=== PATIENT | male | born 1970 | race Caucasian/White ===

== ENCOUNTER 2018-08-08 10:20 | Emergency (ER) | payer BC ==
--- NOTE | 2018-08-08 11:09 | RAD REPORT ---
EXAM DESCRIPTION: CT - Stone Protocol - 08/08/2018 10:52 am CLINICAL HISTORY: Right-sided abdominal pain, flank pain COMPARISON: CT imaging January 2017 TECHNIQUE: Axial 5 mm thick images were obtained without oral or IV contrast. The [id number]-[id number] span s the entirety of the system partially obscuring uppermost abdomen and lung bases. All CT scans are performed using dose optimization technique as appropriate and may include automated exposure control or mA/KV adjustment according to patient size. FINDINGS: No hydronephrosis is present and no obstructing ureteral calculi. No suspicious renal mass es. Isodense masses and pyelonephritis are not excluded on a stone protocol CT scan. No urinary bladd er suspicious finding. Imaged portions of the liver, spleen and pancreas show no suspicious findings on non-contrast imaging . A 17 millimeter oval low-density mass posterolateral right lobe believed to be a cyst and is unchan ged from the study performed 18 months earlier. No gallbladder or biliary tree abnormality identified . No significant adrenal finding. No suspicious bowel findings. Minimal colonic diverticulosis present. No hernia, mass or bulky lymphadenopathy noted. No free air, free fluid or inflammatory stranding. No acute or destructive bone process. There is postsurgical change in the lumbar spine. [place] artifac t from the metal hardware is somewhat limiting. IMPRESSION: No hydronephrosis, obstructing calculus or acute finding. Isodense masses and pyelonephritis are not excluded on stone protocol technique. As detailed above, no acute or suspicious findings identifiable.
[2018-08-08 11:16] LABS: Urine Bacteria <20 /HPF (NONE SEEN); Urine Culture Reflex Order NOT NEEDED; Urine RBC <5 /HPF (NONE SEEN)
[2018-08-08 11:22] LABS: Urine Blood NEGATIVE (NEG); Urine Glucose NEGATIVE (NEG); Urine Protein NEGATIVE (NEG)
[2018-08-08 11:25] LABS: Absolute Lymphocytes (CBC) 1.6 K/uL (0.7-4.9); Absolute Monocytes 0.6 K/uL (0.1-1.3); Absolute Neutrophil 3.3 K/uL (1.8-8.0); Basophils % 0.4 % (0-1.3); Eosinophils % 1.1 % (0-4.4); Lymphocytes % 28.7 % (15.3-44.8); MCH 31.3 pg (27.0-35.0); MCV 89.3 fL (80-100); MPV 8.5 fL (7.6-11.3); Monocytes % 10.6 % (3.3-12.3); RBC Red Blood Cell Count 4.59 M/uL (4.33-5.43)
[2018-08-08 11:47] LABS: ALT/SGPT 26 U/L (12-78); AST/SGOT 15 U/L (15-37); Albumin 3.8 g/dL (3.4-5.0); Alkaline Phosphatase 61 U/L (45-117); BUN Blood Urea Nitrogen 16 mg/dL (7-18); Bicarbonate 28 mmol/L (21-32); Bilirubin Direct < 0.1 mg/dL (0-0.2); Bilirubin Total 0.3 mg/dL (0.2-1.0); Glucose Level 98 mg/dL (74-106); Lipase 609 U/L (73-393); Potassium 4.1 mmol/L (3.5-5.1); Protein, Total 6.9 g/dL (6.4-8.2); Sodium Level 143 mmol/L (136-145)
--- NOTE | 2018-08-08 12:37 | EDPHYS ---
Physician Documentation [facility] Name: Pola Ceron Jr Age: 47 yrs Sex: Male : 1970 Arrival Date: 08/08/2018 Time: 10:23 Bed 6 Private MD: Kd Upton T ED Physician Edy Chaudhary HPI: 08/08 11:00 This 47 yrs old Male presents to ER via Ambulatory with complaints of Low pm1 Back Pain, Sore Throat. 11:00 The patient presents with pain that is acute. The symptoms are located in the right low pm1 back. The pain radiates to the right lower quadrant. The problem was sustained from unknown cause. Onset: The symptoms/episode began/occurred 2 day(s) ago. Modifying factors: The patient symptoms are alleviated by nothing, the patient symptoms are aggravated by bending, lifting, movement. Associated signs and symptoms: Pertinent positives: sore throat, Pertinent negatives: chest pain, dysuria, fever, headache, hematuria, shortness of breath. The patient has not experienced similar symptoms in the past. The patient has not recently seen a physician. Historical: - Allergies: 10:30 NKA; iw - Home Meds: 10:38 Tylenol #3 Oral [Active]; iw - PMHx: 10:38 None; iw - PSHx: 10:30 back; iw - Immunization history:: Adult Immunizations up to date. - Social history:: Smoking status: Patient/guardian denies using tobacco. - Ebola Screening: : Patient negative for fever greater than or equal to 101.5 degrees Fahrenheit, and additional compatible Ebola Virus Disease symptoms Patient denies exposure to infectious person Patient denies travel to an Ebola-affected area in the 21 days before illness onset No symptoms or risks identified at this time. ROS: 11:00 Constitutional: Negative for fever, chills, and weight loss, Eyes: Negative for injury, pm1 pain, redness, and discharge. 11:00 Neck: Negative for injury, pain, and swelling, Cardiovascular: Negative for chest pain, palpitations, and edema, Respiratory: Negative for shortness of breath, cough, wheezing, and pleuritic chest pain, Abdomen/GI: Negative for abdominal pain, nausea, vomiting, diarrhea, and constipation. 11:00 : Negative for injury, bleeding, discharge, and swelling, MS/Extremity: Negative for injury and deformity, Skin: Negative for injury, rash, and discoloration, Neuro: Negative for headache, weakness, numbness, tingling, and seizure. 11:00 ENT: Positive for sore throat, Negative for ear pain, rhinorrhea, difficulty swallowing, difficulty handling secretions. 11:00 Back: Positive for flank pain, on the right. Exam: 11:00 Constitutional: This is a well developed, well nourished patient who is awake, alert, pm1 and in no acute distress. Head/Face: Normocephalic, atraumatic. Eyes: Pupils equal round and reactive to light, extra-ocular motions intact. Lids and lashes normal. Conjunctiva and sclera are non-icteric and not injected. Cornea within normal limits. Periorbital areas with no swelling, redness, or edema. ENT: Nares patent. No nasal discharge, no septal abnormalities noted. Tympanic membranes are normal and external auditory canals are clear. Oropharynx with no redness, swelling, or masses, exudates, or evidence of obstruction, uvula midline. Mucous membranes moist. Neck: Trachea midline, no thyromegaly or masses palpated, and no cervical lymphadenopathy. Supple, full range of motion without nuchal rigidity, or vertebral point tenderness. No Meningismus. Chest/axilla: Normal chest wall appearance and motion. Nontender with no deformity. No lesions are appreciated. Cardiovascular: Regular rate and rhythm with a normal S1 and S2. No gallops, murmurs, or rubs. Normal PMI, no JVD. No pulse deficits. Respiratory: Lungs have equal breath sounds bilaterally, clear to auscultation and percussion. No rales, rhonchi or wheezes noted. No increased work of breathing, no retractions or nasal flaring. Abdomen/GI: Soft, non-tender, with normal bowel sounds. No distension or tympany. No guarding or rebound. No evidence of tenderness throughout. 11:00 Skin: Warm, dry with normal turgor. Normal color with no rashes, no lesions, and no evidence of cellulitis. MS/ Extremity: Pulses equal, no cyanosis. Neurovascular intact. Full, normal range of motion. 11:00 Back: normal spinal alignment noted, CVA tenderness, that is mild, is noted on the right. 11:00 Neuro: Orientation: is normal, Motor: moves all fours, Sensation: is normal, no obvious gross deficits, Gait: is steady, at a normal pace, without difficulty. Vital Signs: 10:33 BP 133 / 70; Pulse 65; Resp 16; Temp 97.9; Pulse Ox 99% on R/A; iw 11:33 BP 119 / 58; Pulse 60; Resp 17; Pulse Ox 98% on R/A; dh3 MDM: 10:28 Patient medically screened. pm1 11:49 Data reviewed: vital signs. Data interpreted: Pulse oximetry: on room air is 99 %. pm1 Interpretation: normal. 12:36 Counseling: I had a detailed discussion with the patient and/or guardian regarding: the pm1 historical points, exam findings, and any diagnostic results supporting the discharge/admit diagnosis, lab results, radiology results, the need for outpatient follow up, to return to the emergency department if symptoms worsen or persist or if there are any questions or concerns that arise at home. 12:36 ED course: Patient has Tylenol #3 at home. Has taken for his current pain prior to pm1 arrival. 08/08 10:36 Order name: Strep pm1 08/08 10:36 Order name: Basic Metabolic Panel; Complete Time: 11:49 pm08/08 10:36 Order name: CBC with Diff; Complete Time: 11:44 pm1 08/08 10:36 Order name: Hepatic Function; Complete Time: 11:49 pm1 08/08 10:36 Order name: Lipase; Complete Time: 11:49 pm1 08/08 10:36 Order name: Urine Microscopic Only; Complete Time: 11:44 pm08/08 10:36 Order name: IV Saline Lock; Complete Time: 10:45 pm08/08 10:36 Order name: Labs collected and sent; Complete Time: 10:45 pm1 08/08 10:36 Order name: Urine Dipstick-Ancillary (obtain specimen); Complete Time: 10:41 pm1 08/08 10:36 Order name: CT Stone Protocol; Complete Time: 11:13 pm1 08/08 10:36 Order name: Group A Streptococcus Rapid Sc; Complete Time: 11:44 EDMS 08/08 10:55 Order name: Urine Dipstick--Ancillary (enter results); Complete Time: 11:44 bd 08/08 11:40 Order name: Throat Culture EDMS Administered Medications: No medications were administered Disposition: 13:28 Co-signature as Attending Physician, Edy Chaudhary MD. rn Disposition: 08/08/18 12:36 Discharged to Home. Impression: Low back pain, Strain of muscle, fascia and tendon of lower back. - Condition is Stable. - Discharge Instructions: Back Pain, Adult, Muscle Strain, Musculoskeletal Pain, Back Injury Prevention, [id number]. - Prescriptions for Naprosyn 500 mg Oral Tablet - take 1 tablet by ORAL route 2 times per day take with food; 30 tablet. Cyclobenzaprine 10 mg Oral Tablet - take 1 tablet by ORAL route every 8 hours As needed; 30 tablet. - Work release form, Medication Reconciliation Form, Thank You Letter, Prescription Opioid Use form. - Follow up: Emergency Department; When: As needed; Reason: Worsening of condition. Follow up: Kd Upton MD; When: 2 - 3 days; Reason: Recheck today's complaints, Continuance of care, Re-evaluation by your physician. - Problem is new. - Symptoms have improved. Signatures: Dispatcher [employer] EDMS Zee Benitez RN RN sv Williams, Irene, RN RN iw Nieto, Roman, MD MD rn Marinas, Patrick, SHIVA SKEET OPERATOR pm1 Corrections: (The following items were deleted from the chart) 12:36 12:36 08/08/2018 12:36 Discharged to Home. Impression: Low back pain. Condition is pm1 Stable. Forms are Medication Reconciliation Form, Thank You Letter, Antibiotic Education, Prescription Opioid Use. Follow up: Emergency Department; When: As needed; Reason: Worsening of condition. Follow up: Kd Upton; When: 2 - 3 days; Reason: Recheck today's complaints, Continuance of care, Re-evaluation by your physician. Problem is new. Symptoms have improved. pm1 13:06 12:36 08/08/2018 12:36 Discharged to Home. Impression: Low back pain; Strain of muscle, sv fascia and tendon of lower back. Condition is Stable. Forms are Medication Reconciliation Form, Thank You Letter, Antibiotic Education, Prescription Opioid Use. Follow up: Emergency Department; When: As needed; Reason: Worsening of condition. Follow up: Kd Upton; When: 2 - 3 days; Reason: Recheck today's complaints, Continuance of care, Re-evaluation by your physician. Problem is new. Symptoms have improved. pm1
--- NOTE | 2018-08-08 12:37 | ER ---
Nurse's Notes [facility] Name: Pola Ceron Jr Age: 47 yrs Sex: Male : 1970 Arrival Date: 08/08/2018 Time: 10:23 Bed 6 Private MD: Kd Upton T Diagnosis: Low back pain;Strain of muscle, fascia and tendon of lower back Presentation: 08/08 10:30 Presenting complaint: Patient states: has had right lower back pain radiating to iw abdomen since Wednesday, thought he pulled a muscle but pain has gotten worse, pain aggravated by movement, denies urinary symptoms, denies n/v/d, also has dry throat and allergies. 10:35 Transition of care: patient was not received from another setting of care. Onset of iw symptoms was August 05, 2018. Risk Assessment: Do you want to hurt yourself or someone else? Patient reports no desire to harm self or others. Initial Sepsis Screen: Does the patient meet any 2 criteria? No. Patient's initial sepsis screen is negative. Does the patient have a suspected source of infection? No. Patient's initial sepsis screen is negative. Care prior to arrival: None. 10:35 Method Of Arrival: Ambulatory iw 10:35 Acuity: LISSETTE 3 iw Historical: - Allergies: 10:30 NKA; iw - Home Meds: 10:38 Tylenol #3 Oral [Active]; iw - PMHx: 10:38 None; iw - PSHx: 10:30 back; iw - Immunization history:: Adult Immunizations up to date. - Social history:: Smoking status: Patient/guardian denies using tobacco. - Ebola Screening: : Patient negative for fever greater than or equal to 101.5 degrees Fahrenheit, and additional compatible Ebola Virus Disease symptoms Patient denies exposure to infectious person Patient denies travel to an Ebola-affected area in the 21 days before illness onset No symptoms or risks identified at this time. Screenin:32 Abuse screen: Denies threats or abuse. Denies injuries from another. Nutritional sv screening: No deficits noted. Tuberculosis screening: No symptoms or risk factors identified. Fall Risk None identified. Assessment: 10:40 General: Appears in no apparent distress. comfortable, well groomed, well developed, sv Behavior is calm, cooperative, appropriate for age. Pain: Complains of pain in low back area and throat Pain currently is 5 out of 10 on a pain scale. Is continuous. Neuro: Level of Consciousness is awake, alert, obeys commands, Oriented to person, place, time, situation, Moves all extremities. Full function Gait is steady. Respiratory: Airway is patent Respiratory effort is even, unlabored, Respiratory pattern is regular, symmetrical. EENT: Throat is clear. Derm: Skin is pink, warm \T\ dry. 12:20 Reassessment: Patient appears in no apparent distress at this time. Patient and/or tw2 family updated on plan of care and expected duration. Pain level reassessed. Patient is alert, oriented x 3, equal unlabored respirations, skin warm/dry/pink. 13:05 Reassessment: Patient appears in no apparent distress at this time. Patient and/or sv family updated on plan of care and expected duration. Pain level reassessed. Patient is alert, oriented x 3, equal unlabored respirations, skin warm/dry/pink. Vital Signs: 10:33 BP 133 / 70; Pulse 65; Resp 16; Temp 97.9; Pulse Ox 99% on R/A; iw 11:33 BP 119 / 58; Pulse 60; Resp 17; Pulse Ox 98% on R/A; dh3 ED Course: 10:23 Patient arrived in ED. rg4 10:23 Kd Upton MD is Private Physician. rg4 10:27 Tommy Morales NP is PHCP. pm1 10:27 Edy Chaudhary MD is Attending Physician. pm1 10:32 Zee Benitez, RAYMOND is Primary Nurse. sv 10:32 Patient has correct armband on for positive identification. Door closed. Head of bed sv elevated. 10:33 Arm band placed on right wrist. sv 10:35 Triage completed. iw 10:40 Initial lab(s) drawn, by me, sent to lab. Strep swab sent to lab. Inserted saline lock: sv 20 gauge in right antecubital area, using aseptic technique. Blood collected. Flushed right antecubital with 5 ml normal saline. 10:41 Urine collected: clean catch specimen, clear. dh3 10:45 Strep Sent. sv 10:[address] via wheelchair. sv 10:49 CT completed. Patient tolerated procedure well. Patient moved back from CT. jg6 10:52 CT Stone Protocol In Process Unspecified. EDMS 11:01 Awaiting lab results, Awaiting radiology results. sv 12:36 Kd Upton MD is Referral Physician. pm1 13:05 No provider procedures requiring assistance completed. IV discontinued, intact, sv bleeding controlled, No redness/swelling at site. Pressure dressing applied. Administered Medications: No medications were administered Outcome: 12:36 Discharge ordered by MD. pm1 13:05 Discharged to home ambulatory. sv 13:05 Condition: stable 13:05 Discharge instructions given to patient, Instructed on discharge instructions, follow up and referral plans. medication usage, Demonstrated understanding of instructions, follow-up care, medications, Prescriptions given X 2. 13:06 Patient left the ED. sv Signatures: Dispatcher [employer] EDKY Zee Benitez RN RN Betsey Pina RN RN iw Tommy Morales, SHIVA INDUSTRIAL TWISTING MACHINE OPERATOR pm1 Tash Martinez RN RN tw2 Mellissa Lopez rg4 William, Gricelda 3 Caroline Lopez jg6 Corrections: (The following items were deleted from the chart) 12:21 12:19 BP 109 / 64; Pulse 94bpm; Resp 18bpm; Pulse Ox 96% RA; tw2 tw2
[2018-08-08 13:11] VITALS: TEMP 97.9
[2018-08-08 13:12] VITALS: BP 119/58; O2SAT 98
== END 2018-08-08 13:06 | disposition home or self-care (01) ==
LOC: ER 10:20
DX: S39.012A Strain of muscle, fascia and tendon of lower back, initial encounter (principal); X58.XXXA Exposure to other specified factors, initial encounter; Y93.9 Activity, unspecified; Y92.9 Unspecified place or not applicable
CPT/HCPCS: 36415; 74176; 76377; 80048; 80076; 81003; 81015; 83690; 85025; 87070; 87081; 99284

== ENCOUNTER 2019-08-10 16:09 | Emergency (ER) | payer BC ==
[2019-08-10] MEDS ORDERED: ACETAMINOPHEN 325 MG TABLET ONE (17:27)
[2019-08-10] MEDS ORDERED: IBUPROFEN 400 MG TAB ONE (17:28)
--- NOTE | 2019-08-10 18:37 | RAD REPORT ---
EXAM DESCRIPTION: RAD -Hand Left 3 View - 08/10/2019 6:06 pm CLINICAL HISTORY: Left hand pain status post injury FINDINGS: No fracture or dislocation is seen.
--- NOTE | 2019-08-10 18:48 | ER ---
Nurse's Notes [facility] Name: Pola Ceron Jr Age: 48 yrs Sex: Male : 1970 Arrival Date: 08/10/2019 Time: 16:20 Bed 11 Private MD: Diagnosis: Laceration without foreign body of left hand Presentation: 08/10 16:28 Presenting complaint: Patient states: cut left hand with screwdriver, states it's deep, iw occurred two days ago. Transition of care: patient was not received from another setting of care. Complicating Factors: There are no complicating factors for this patient. Onset of symptoms was August 10, 2019. Risk Assessment: Do you want to hurt yourself or someone else? Patient reports no desire to harm self or others. Initial Sepsis Screen: Does the patient meet any 2 criteria? No. Patient's initial sepsis screen is negative. Does the patient have a suspected source of infection? No. Patient's initial sepsis screen is negative. Care prior to arrival: None. 16:28 Method Of Arrival: Ambulatory iw 16:28 Acuity: LISSETTE 4 iw Triage Assessment: 17:15 General: Behavior is calm, cooperative. Injury Description: Laceration. iw Historical: - Allergies: 16:30 NKA; iw - PMHx: 16:30 hearing impaired; iw - PSHx: 16:30 back; iw - Immunization history:: Last tetanus immunization: < 5 years ago. - Ebola Screening: : Patient negative for fever greater than or equal to 101.5 degrees Fahrenheit, and additional compatible Ebola Virus Disease symptoms Patient denies exposure to infectious person Patient denies travel to an Ebola-affected area in the 21 days before illness onset No symptoms or risks identified at this time. - Social history:: Smoking status: Patient/guardian denies using tobacco. Screenin:22 Abuse screen: Denies threats or abuse. Denies injuries from another. Nutritional iw screening: No deficits noted. Tuberculosis screening: No symptoms or risk factors identified. Fall Risk None identified. Assessment: 17:22 General: Appears in no apparent distress. comfortable. Pain: Complains of pain in right iw hand. Neuro: Level of Consciousness is awake, alert, obeys commands, Oriented to person, place, time, situation. Respiratory: Respiratory effort is even, unlabored, Respiratory pattern is regular. Musculoskeletal: No signs and/or symptoms reported regarding the musculoskeletal system. Range of motion: intact in all extremities, Injury Description: Laceration sustained to dorsum of right hand is 0.5 to 2.5 cm long. Vital Signs: 16:29 BP 140 / 82; Pulse 75; Resp 16; Temp 98.7; Pulse Ox 97% ; iw ED Course: 16:20 Patient arrived in ED. iw 16:29 Triage completed. iw 16:29 Arm band placed on. iw 16:30 Patient has correct armband on for positive identification. iw 17:17 Ren Conner PA is PHCP. cp 17:17 Trey Carrasquillo MD is Attending Physician. cp 17:21 Betsey Pina, RAYMOND is Primary Nurse. iw 18:09 XRAY Hand LEFT 3 View In Process Unspecified. EDMS 18:46 Richard Greenberg MD is Referral Physician. cp 19:04 No provider procedures requiring assistance completed. Patient did not have IV access ss during this emergency room visit. finger splint applied with aluminum splint. Wound care: irrigated wound with NS and Betadine solution. patient tolerated well. Non adherent dressing with antibiotic ointment applied. Administered Medications: 17:29 Drug: Ibuprofen 800 mg Route: PO; iw 18:57 Follow up: Response: No adverse reaction ss 17:29 Drug: Tylenol 650 mg Route: PO; iw 18:57 Follow up: Response: No adverse reaction ss 18:57 Drug: Bactrim (160 mg-800 mg (DS) 1 tablet Route: PO; ss 18:58 Follow up: Response: Medication administered at discharge. ss 18:58 Drug: Doxycycline 100 mg Route: PO; ss 18:58 Follow up: Response: Medication administered at discharge. ss 19:03 Not Given (patient had tetnus shot 4 years ago): Tetanus-Diphtheria Toxoid Adult 0.5 ml ss IM once Outcome: 18:47 Discharge ordered by . cp 19:04 Discharged to home ambulatory. ss 19:04 Condition: good 19:04 Discharge instructions given to patient, Instructed on discharge instructions, follow up and referral plans. medication usage, wound care, Demonstrated understanding of instructions, follow-up care, medications, Prescriptions given X 4. 19:05 Patient left the ED. ss Signatures: Dispatcher [employer] EDMS YovaniBetsey RN RN iw Smirch, Shelby, RN RN ss Ren Conner, JOHN PA cp Corrections: (The following items were deleted from the chart) 16:29 16:28 Presenting complaint: Patient states: cut left hand with screwdriver, states it's iw deep iw
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
[2019-08-10] MEDS ORDERED: DOXYCYCLINE 100 MG CAP PO ONE (18:54)
[2019-08-10] MEDS ORDERED: SMZ./TMP. 800/160 MG TABLET ONE (18:54)
[2019-08-10 20:38] VITALS: BP 140/82; TEMP 98.7; O2SAT 97
== END 2019-08-10 19:05 | disposition home or self-care (01) ==
LOC: ER 16:09
DX: S61.412A Laceration without foreign body of left hand, initial encounter (principal); W27.0XXA Contact with workbench tool, initial encounter; Y93.89 Activity, other specified; Y92.9 Unspecified place or not applicable; Z23 Encounter for immunization
CPT/HCPCS: 99284

== ENCOUNTER 2020-02-21 06:01 | Emergency (ER) | payer BC ==
[2020-02-21] MEDS ORDERED: KETOROLAC 30 MG/ML INJ ONE (06:33)
[2020-02-21 07:48] LABS: Urine Bacteria NONE SEEN /HPF (NONE SEEN); Urine Culture Reflex Order REFLEXED; Urine RBC NONE SEEN /HPF (NONE SEEN)
--- NOTE | 2020-02-21 07:56 | RAD REPORT ---
EXAM DESCRIPTION: CT - Stone Protocol - 02/21/2020 7:29 am CLINICAL HISTORY: Abdominal pain. Right flank pain COMPARISON: 2017 TECHNIQUE: Computed axial tomography of the abdomen pelvis was obtained without oral or IV contrast. Lack of IV and oral contrast limits evaluation of solid organs, bowel, and vessels. Coronal reformat harris images were obtained and reviewed. All CT scans are performed using dose optimization technique as appropriate and may include automated exposure control or mA/KV adjustment according to patient size. FINDINGS: A renal calculus is not seen. An ureteral calculus is not noted. A bladder calculus is not present. A small hepatic cyst Spleen, pancreas and adrenals appear grossly normal There is no evidence of diverticulitis. An abnormal appendix is not visualized. Postsurgical changes involve the lumbar spine. A small umbilical hernia is present IMPRESSION: Negative for a genitourinary calculus
--- NOTE | 2020-02-21 07:59 | ER ---
Nurse's Notes [facility] Name: Pola Ceron Jr Age: 49 yrs Sex: Male : 1970 Arrival Date: 02/21/2020 Time: 06:11 Bed 19 Private MD: Diagnosis: Low back pain Presentation: 02/20 06:20 Chief complaint: Patient states: he is having right flank pain starting 2 days ago and bb getting worse pain currently is 10/. Coronavirus screen: Patient denies fever greater than 100.4F, cough, shortness of breath, or difficulty breathing. Proceed with normal triage process. Ebola Screen: No symptoms or risks identified at this time. Initial Sepsis Screen: Does the patient meet any 2 criteria? No. Patient's initial sepsis screen is negative. Does the patient have a suspected source of infection? No. Patient's initial sepsis screen is negative. Risk Assessment: Do you want to hurt yourself or someone else? Patient reports no desire to harm self or others. Onset of symptoms was February 18, 2020. 06:20 Method Of Arrival: Ambulatory bb 06:20 Acuity: LISSETTE 3 bb Triage Assessment: 07:00 General: Appears in no apparent distress. comfortable, Behavior is calm, cooperative, bp appropriate for age. Pain: Complains of pain in posterior aspect of right lateral abdomen. EENT: No deficits noted. Neuro: No deficits noted. Cardiovascular: No deficits noted. Respiratory: No deficits noted. GI: No signs and/or symptoms were reported involving the gastrointestinal system. : Reports pain in right flank(s). Derm: No deficits noted. Musculoskeletal: No deficits noted. Historical: - Allergies: 06:22 NKA; bb - Home Meds: 06:22 None [Active]; bb - PMHx: 06:22 HEARING IMPAIRED; Kidney stones; bb - PSHx: 06:22 back; bb - Immunization history:: Adult Immunizations unknown. - Social history:: Smoking status: Patient denies any tobacco usage or history of. Patient/guardian denies using alcohol, street drugs. Screenin:22 Abuse screen: Denies threats or abuse. Denies injuries from another. Nutritional rv screening: No deficits noted. Tuberculosis screening: No symptoms or risk factors identified. Fall Risk None identified. Assessment: 06:22 General: Appears in no apparent distress. Behavior is calm, cooperative. Pain: rv Complains of pain in right flank. Neuro: Level of Consciousness is awake, alert, obeys commands, Oriented to person, place, time, situation. Cardiovascular: Patient's skin is warm and dry. Respiratory: Airway is patent. GI: Abdomen is flat, Bowel sounds present X 4 quads. : No signs and/or symptoms were reported regarding the genitourinary system. Derm: Skin is intact. 08:25 Reassessment: PT D/C HOME AMBULATORY, DX WITH LOW BACK PAIN. bp Vital Signs: 06:20 BP 121 / 57; Pulse 63; Resp 16 S; Temp 98(O); Pulse Ox 98% on R/A; Weight 122.47 kg bb (R); Height 6 ft. 0 in. (182.88 cm) (R); Pain 10/10; 08:25 BP 133 / 79; Pulse 63; Resp 17; Temp 98; Pulse Ox 97% ; bp 06:20 Body Mass Index 36.62 (122.47 kg, 182.88 cm) bb ED Course: 06:11 Patient arrived in ED. ds1 06:17 [facility]-C [facility]. snw 06:17 Ren Mcleod MD is Attending Physician. snw 06:22 Triage completed. bb 06:22 Skip Beatty, RAYMOND is Primary Nurse. rv 06:22 Arm band placed on Patient placed in an exam room, on a stretcher, on pulse oximetry. bb 06:24 Patient has correct armband on for positive identification. Bed in low position. Call rv light in reach. Pulse ox on. NIBP on. 06:33 Urine Microscopic Only Sent. rv 07:49 CT Stone Protocol In Process Unspecified. EDMS 08:25 No provider procedures requiring assistance completed. Patient did not have IV access bp during this emergency room visit. Administered Medications: 06:33 Drug: TORadol 30 mg Route: IM; Site: right deltoid; rv 08:27 Follow up: Response: Pain is decreased bp Outcome: 07:59 Discharge ordered by . snw 08:25 Discharged to home ambulatory. bp 08:25 Condition: stable 08:25 Discharge instructions given to patient, Instructed on discharge instructions, follow up and referral plans. medication usage, Demonstrated understanding of instructions, follow-up care, medications, Prescriptions given X 2. 08:31 Patient left the ED. bp Signatures: Dispatcher [employer] EDMS Trinity Hoskins, LEATHER STRIPPING MACHINE OPERATOR-C LEATHER STRIPPING MACHINE OPERATOR-Csnw Dayanara Awan ds1 Glenna Lozano, RN RN bb Saturnino Barrientos, RN RN bp Skip Beatty RN RN rv
--- NOTE | 2020-02-21 08:00 | EDPHYS ---
Physician Documentation [facility] Name: Pola Ceron Jr Age: 49 yrs Sex: Male : 1970 Arrival Date: 02/21/2020 Time: 06:11 Bed 19 Private MD: ED Physician Ren Mcleod HPI: 02/20 07:26 This 49 yrs old Male presents to ER via Ambulatory with complaints of R side snw abd pain. 07:26 Onset: The symptoms/episode began/occurred acutely, and became persistent. Associated snw signs and symptoms: The patient has no apparent associated signs or symptoms. Modifying factors: The patient symptoms are alleviated by nothing. The patient has experienced a previous episode. The patient has not recently seen a physician. hx of kidney stones. Historical: - Allergies: 06:22 NKA; bb - Home Meds: 06:22 None [Active]; bb - PMHx: 06:22 HEARING IMPAIRED; Kidney stones; bb - PSHx: 06:22 back; bb - Immunization history:: Adult Immunizations unknown. - Social history:: Smoking status: Patient denies any tobacco usage or history of. Patient/guardian denies using alcohol, street drugs. ROS: 07:25 Constitutional: Negative for fever, chills, and weight loss, Eyes: Negative for injury, snw pain, redness, and discharge, ENT: Negative for injury, pain, and discharge, Neck: Negative for injury, pain, and swelling, Cardiovascular: Negative for chest pain, palpitations, and edema, Respiratory: Negative for shortness of breath, cough, wheezing, and pleuritic chest pain, : Negative for injury, bleeding, discharge, and swelling, MS/Extremity: Negative for injury and deformity, Skin: Negative for injury, rash, and discoloration, Neuro: Negative for headache, weakness, numbness, tingling, and seizure. 07:25 Abdomen/GI: Positive for abdominal pain, of the posterior aspect of right lateral abdomen and right lower quadrant. Exam: 07:25 Constitutional: This is a well developed, well nourished patient who is awake, alert, snw and in no acute distress. Head/Face: Normocephalic, atraumatic. Eyes: Pupils equal round and reactive to light, extra-ocular motions intact. Lids and lashes normal. Conjunctiva and sclera are non-icteric and not injected. Cornea within normal limits. Periorbital areas with no swelling, redness, or edema. ENT: Nares patent. No nasal discharge, no septal abnormalities noted. Tympanic membranes are normal and external auditory canals are clear. Oropharynx with no redness, swelling, or masses, exudates, or evidence of obstruction, uvula midline. Mucous membranes moist. Neck: Trachea midline, no thyromegaly or masses palpated, and no cervical lymphadenopathy. Supple, full range of motion without nuchal rigidity, or vertebral point tenderness. No Meningismus. Chest/axilla: Normal chest wall appearance and motion. Nontender with no deformity. No lesions are appreciated. Cardiovascular: Regular rate and rhythm with a normal S1 and S2. No gallops, murmurs, or rubs. Normal PMI, no JVD. No pulse deficits. Respiratory: Lungs have equal breath sounds bilaterally, clear to auscultation and percussion. No rales, rhonchi or wheezes noted. No increased work of breathing, no retractions or nasal flaring. Abdomen/GI: Soft, non-tender, with normal bowel sounds. No distension or tympany. No guarding or rebound. No evidence of tenderness throughout. Back: No spinal tenderness. No costovertebral tenderness. Full range of motion. right flank tenderness Skin: Warm, dry with normal turgor. Normal color with no rashes, no lesions, and no evidence of cellulitis. MS/ Extremity: Pulses equal, no cyanosis. Neurovascular intact. Full, normal range of motion. Neuro: Awake and alert, GCS 15, oriented to person, place, time, and situation. Cranial nerves II-XII grossly intact. Motor strength 5/5 in all extremities. Sensory grossly intact. Cerebellar exam normal. Normal gait. Psych: Awake, alert, with orientation to person, place and time. Behavior, mood, and affect are within normal limits. Vital Signs: 06:20 BP 121 / 57; Pulse 63; Resp 16 S; Temp 98(O); Pulse Ox 98% on R/A; Weight 122.47 kg bb (R); Height 6 ft. 0 in. (182.88 cm) (R); Pain 10/10; 08:25 BP 133 / 79; Pulse 63; Resp 17; Temp 98; Pulse Ox 97% ; bp 06:20 Body Mass Index 36.62 (122.47 kg, 182.88 cm) bb MDM: 06:18 Patient medically screened. farida 15:14 Data reviewed: vital signs, nurses notes. Data interpreted: Pulse oximetry: on room air snw is 97 %. Interpretation: normal. Counseling: I had a detailed discussion with the patient and/or guardian regarding: the historical points, exam findings, and any diagnostic results supporting the discharge/admit diagnosis, the presence of at least one elevated blood pressure reading (>120/80) during this emergency department visit, radiology results, the need for outpatient follow up, to return to the emergency department if symptoms worsen or persist or if there are any questions or concerns that arise at home. Special discussion: Based on the history and exam findings, there is no indication for further emergent testing or inpatient evaluation. I discussed with the patient/guardian the need to see the primary care provider for further evaluation of the symptoms. 02/20 06:26 Order name: Urine Microscopic Only; Complete Time: 07:57 snw 02/20 07:42 Order name: Urine Dipstick--Ancillary (enter results); Complete Time: 15:15 bd 02/20 06:26 Order name: CT Stone Protocol; Complete Time: 15:15 snw 02/20 06:26 Order name: Urine Dipstick-Ancillary (obtain specimen); Complete Time: 06:33 snw 02/20 08:15 Order name: Urine Culture EDMS Administered Medications: 06:33 Drug: TORadol 30 mg Route: IM; Site: right deltoid; rv 08:27 Follow up: Response: Pain is decreased bp Disposition: 02/21/20 07:59 Discharged to Home. Impression: Low back pain. - Condition is Stable. - Discharge Instructions: Back Pain, Adult, Musculoskeletal Pain, Back Injury Prevention, [id number], Heat Therapy. - Prescriptions for Diclofenac Sodium 75 mg Oral Tablet Sustained Release - take 1 tablet by ORAL route 2 times per day; 30 tablet. orphenadrine citrate 100 mg Oral Tablet Sustained Release - take 1 tablet by ORAL route 2 times per day As needed; 20 tablet. - Work release form, Medication Reconciliation Form, Thank You Letter, Antibiotic Education, Prescription Opioid Use form. - Follow up: Emergency Department; When: As needed; Reason: Worsening of condition. Follow up: Private Physician; When: 2 - 3 days; Reason: Recheck today's complaints, Continuance of care, Re-evaluation by your physician. Addendum: 02/23/2020 06:52 Co-signature as Attending Physician, Ren Mcleod MD I agree with the assessment and c landry plan of care. Signatures: Dispatcher [employer] EDRen Miranda MD MD cha Therrien, Shelly, LIFE SKILLS TRAINER-C LIFE SKILLS TRAINER-Csnw Glenna Lozano, RN RN bb Saturnino Barrientos RN RN Skip Palm RN RN rv Corrections: (The following items were deleted from the chart) 02/20 08:31 07:59 02/21/2020 07:59 Discharged to Home. Impression: Low back pain. Condition is bp Stable. Forms are Medication Reconciliation Form, Thank You Letter, Antibiotic Education, Prescription Opioid Use. Follow up: Emergency Department; When: As needed; Reason: Worsening of condition. Follow up: Private Physician; When: 2 - 3 days; Reason: Recheck today's complaints, Continuance of care, Re-evaluation by your physician. snw
[2020-02-21 08:51] VITALS: TEMP 98
[2020-02-21 08:53] VITALS: BP 133/79; O2SAT 97
[2020-02-21 14:20] LABS: Urine Blood NEGATIVE (NEG); Urine Glucose NEGATIVE (NEG); Urine Protein NEGATIVE (NEG); Urine pH 5.5 (5.0-7.0)
== END 2020-02-21 08:31 | disposition home or self-care (01) ==
LOC: ER 06:01
DX: M54.5 Low back pain (principal); Z87.442 Personal history of urinary calculi
CPT/HCPCS: 74176; 76377; 81003; 81015; 87086; 87088; 96372; 99284

== ENCOUNTER 2020-08-01 07:40 | Emergency (ER) | payer BC ==
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
--- NOTE | 2020-08-01 08:52 | EDPHYS ---
Physician Documentation [facility] Name: Pola Ceron Jr Age: 49 yrs Sex: Male : 1970 Arrival Date: 08/01/2020 Time: 07:43 Bed 20 Private MD: ED Physician Ren Mcleod HPI: 08/01 08:19 This 49 yrs old Male presents to ER via Ambulatory with complaints of jr8 Dizziness, neck pain. 08:19 The patient presents with feeling off balance. Onset: The symptoms/episode jr8 began/occurred gradually, 2 week(s) ago. Modifying factors: The symptoms are alleviated by holding head still, the symptoms are aggravated by movement of head, standing up, changing position. Associated signs and symptoms: Pertinent positives: ear pain. Severity of symptoms: At their worst the symptoms were mild in the emergency department the symptoms are unchanged. Patient's baseline: Neuro: alert and fully oriented, Motor: no deficits, Ambulation: walks without assistance, Speech: normal. The patient has not experienced similar symptoms in the past. The patient has not recently seen a physician. Historical: - Allergies: 07:51 NKA; hb - PMHx: 07:51 HEARING IMPAIRED; Kidney stones; hb - PSHx: 07:51 back; hb - Immunization history:: Adult Immunizations up to date. - Social history:: Smoking status: Patient denies any tobacco usage or history of. ROS: 08:19 Eyes: Negative for injury, pain, redness, and discharge, Cardiovascular: Negative for jr8 chest pain, palpitations, and edema, Respiratory: Negative for shortness of breath, cough, wheezing, and pleuritic chest pain, Abdomen/GI: Negative for abdominal pain, nausea, vomiting, diarrhea, and constipation, Back: Negative for injury and pain, MS/Extremity: Negative for injury and deformity, Skin: Negative for injury, rash, and discoloration. 08:19 ENT: Positive for ear pain, Negative for drainage from ear(s), Gum pain tinnitus, nasal discharge, rhinorrhea, sinus congestion, sinus pain, sore throat, dental pain. 08:19 Neck: Positive for pain with movement, pain at rest, Negative for swollen nodes, tenderness, bony tenderness. 08:19 Neuro: Positive for dizziness, headache. Exam: 08:19 Eyes: Pupils equal round and reactive to light, extra-ocular motions intact. Lids and jr8 lashes normal. Conjunctiva and sclera are non-icteric and not injected. Cornea within normal limits. Periorbital areas with no swelling, redness, or edema. ENT: Nares patent. No nasal discharge, no septal abnormalities noted. Tympanic membranes are normal and external auditory canals are clear. Oropharynx with no redness, swelling, or masses, exudates, or evidence of obstruction, uvula midline. Mucous membranes moist. Neck: Trachea midline, no thyromegaly or masses palpated, and no cervical lymphadenopathy. Supple, full range of motion without nuchal rigidity, or vertebral point tenderness. No Meningismus. Cardiovascular: Regular rate and rhythm with a normal S1 and S2. No gallops, murmurs, or rubs. Normal PMI, no JVD. No pulse deficits. Respiratory: Lungs have equal breath sounds bilaterally, clear to auscultation and percussion. No rales, rhonchi or wheezes noted. No increased work of breathing, no retractions or nasal flaring. Abdomen/GI: Soft, non-tender, with normal bowel sounds. No distension or tympany. No guarding or rebound. No evidence of tenderness throughout. Back: No spinal tenderness. No costovertebral tenderness. Full range of motion. Skin: Warm, dry with normal turgor. Normal color with no rashes, no lesions, and no evidence of cellulitis. MS/ Extremity: Pulses equal, no cyanosis. Neurovascular intact. Full, normal range of motion. Neuro: Awake and alert, GCS 15, oriented to person, place, time, and situation. Cranial nerves II-XII grossly intact. Motor strength 5/5 in all extremities. Sensory grossly intact. Cerebellar exam normal. Normal gait. Vital Signs: 07:49 BP 108 / 93; Pulse 62; Resp 16; Temp 97.6; Pulse Ox 100% ; Weight 117.03 kg; Height 6 hb ft. (182.88 cm); Pain 8/10; 08:46 BP 109 / 68; Pulse 56; Resp 17; Pulse Ox 98% ; bp 07:49 Body Mass Index 34.99 (117.03 kg, 182.88 cm) hb MDM: 07:46 Patient medically screened. jr8 08:48 Data reviewed: vital signs, nurses notes, radiologic studies, CT scan. Data jr8 interpreted: Pulse oximetry: on room air is 98 %. Interpretation: normal. Counseling: I had a detailed discussion with the patient and/or guardian regarding: the historical points, exam findings, and any diagnostic results supporting the discharge/admit diagnosis, radiology results, the need for outpatient follow up, a family practitioner, to return to the emergency department if symptoms worsen or persist or if there are any questions or concerns that arise at home. 08/01 07:59 Order name: CT Head C Spine; Complete Time: 08:48 jr8 Administered Medications: No medications were administered Disposition: 16:59 Co-signature as Attending Physician, Ren Mcleod MD I agree with the assessment and farida plan of care. Disposition: 08/01/20 08:52 Discharged to Home. Impression: Dizziness, Cerviclagia . - Condition is Stable. - Discharge Instructions: Dizziness, Muscle Pain, Adult. - Prescriptions for meloxicam 15 mg Oral tablet - take 1 tablet by ORAL route once daily As needed; 20 tablet. Meclizine 25 mg Oral Tablet - take 1 tablet by ORAL route every 8 hours As needed; 30 tablet. - Medication Reconciliation Form, Thank You Letter, Antibiotic Education, Prescription Opioid Use, Work release form form. - Follow up: Private Physician; When: 1 week; Reason: Recheck today's complaints, Continuance of care, Re-evaluation by your physician. - Problem is new. - Symptoms are unchanged. Signatures: Dispatcher [employer] Ren Bishop MD MD cha Roszak, Josh, PA PA jr8 Mildred Kitchen, RAYMOND RN Saturnino Vigil RN RN bp Corrections: (The following items were deleted from the chart) 09:12 08:52 08/01/2020 08:52 Discharged to Home. Impression: Dizziness; Cerviclagia . bp Condition is Stable. Forms are Medication Reconciliation Form, Thank You Letter, Antibiotic Education, Prescription Opioid Use. Follow up: Private Physician; When: 1 week; Reason: Recheck today's complaints, Continuance of care, Re-evaluation by your physician. Problem is new. Symptoms are unchanged. jr8
--- NOTE | 2020-08-01 08:52 | ER ---
Nurse's Notes [facility] Name: Pola Ceron Jr Age: 49 yrs Sex: Male : 1970 Arrival Date: 08/01/2020 Time: 07:43 Bed 20 Private MD: Diagnosis: Dizziness;Cerviclagia Presentation: 08/01 07:49 Chief complaint: Bilateral ear pain, worse on right side, dizziness, headache, and hb stiff neck x 3 weeks. Denies fever/cough. Coronavirus screen: At this time, the client does not indicate any symptoms associated with coronavirus-19. Ebola Screen: No symptoms or risks identified at this time. Initial Sepsis Screen: Does the patient meet any 2 criteria? No. Patient's initial sepsis screen is negative. Does the patient have a suspected source of infection? No. Patient's initial sepsis screen is negative. Risk Assessment: Do you want to hurt yourself or someone else? Patient reports no desire to harm self or others. Onset of symptoms was June 2020. 07:49 Method Of Arrival: Ambulatory hb 07:49 Acuity: LISSETTE 3 hb Triage Assessment: 07:50 General: Appears in no apparent distress. uncomfortable, Behavior is calm, cooperative, bp appropriate for age. Pain: Complains of pain in right ear and left ear. EENT: Reports pain in right ear and left ear. Neuro: No deficits noted. Cardiovascular: No deficits noted. Respiratory: No deficits noted. GI: No signs and/or symptoms were reported involving the gastrointestinal system. : No signs and/or symptoms were reported regarding the genitourinary system. Derm: No deficits noted. Musculoskeletal: No deficits noted. Historical: - Allergies: 07:51 NKA; hb - PMHx: 07:51 HEARING IMPAIRED; Kidney stones; hb - PSHx: 07:51 back; hb - Immunization history:: Adult Immunizations up to date. - Social history:: Smoking status: Patient denies any tobacco usage or history of. Screenin:47 Abuse screen: Denies threats or abuse. Denies injuries from another. Nutritional bp screening: No deficits noted. Tuberculosis screening: No symptoms or risk factors identified. Fall Risk None identified. Assessment: 07:47 General: SEE TRIAGE NOTE. PT DEAF. bp 08:47 Reassessment: CT RESULTS UNREMARKABLE. VS STABLE ON MONITOR. bp 09:10 Reassessment: PER PT REQUEST, MESSAGE LEFT FOR SPOUSE WITH D/C INSTRUCTIONS. PT D/C bp HOME AMBULATORY, DX WITH CERVICALGIA. Vital Signs: 07:49 BP 108 / 93; Pulse 62; Resp 16; Temp 97.6; Pulse Ox 100% ; Weight 117.03 kg; Height 6 hb ft. (182.88 cm); Pain 8/10; 08:46 BP 109 / 68; Pulse 56; Resp 17; Pulse Ox 98% ; bp 07:49 Body Mass Index 34.99 (117.03 kg, 182.88 cm) hb ED Course: 07:43 Patient arrived in ED. ds1 07:45 Saturnino Barrientos, RN is Primary Nurse. bp 07:46 Jacob Foley PA is PHCP. jr8 07:46 Ren Mcleod MD is Attending Physician. jr8 07:47 Patient has correct armband on for positive identification. Bed in low position. Call bp light in reach. Side rails up X2. 07:50 Triage completed. hb 07:51 Arm band placed on. hb 08:10 CT Head C Spine Sent. bp 08:12 CT Head C Spine In Process Unspecified. EDMS 09:11 No provider procedures requiring assistance completed. Patient did not have IV access bp during this emergency room visit. Administered Medications: No medications were administered Outcome: 08:52 Discharge ordered by . jr8 09:11 Discharged to home ambulatory, with family. bp 09:11 Condition: stable 09:11 Discharge instructions given to patient, family, Instructed on discharge instructions, follow up and referral plans. medication usage, Demonstrated understanding of instructions, follow-up care, medications, Prescriptions given X 2. 09:12 Patient left the ED. bp Signatures: Dispatcher [employer] EDWA Dayanara Awan ds1 Jacob Foley PA PA jr8 Mildred Kitchen, RN RN hb Saturnino Barrientos, RN RN bp
[2020-08-03 05:12] VITALS: TEMP 97.6
[2020-08-03 05:14] VITALS: BP 109/68; O2SAT 98
== END 2020-08-01 09:12 | disposition home or self-care (01) ==
LOC: ER 07:40
DX: M54.2 Cervicalgia (principal); Z87.442 Personal history of urinary calculi; Z87.898 Personal history of other specified conditions
CPT/HCPCS: 70450; 72125; 99283

== ENCOUNTER 2021-07-30 10:55 | Emergency (ER) | payer BC ==
--- OUTSIDE RECORDS SUMMARY | 2021-07-30 10:57 | XMS REPORT | Continuity of Care Document ---
:1970 Author Organization [facility] t Address [address] [place] [address] Care Team Providers Name Role Phone Unavailable Unavailable Unavailable Problems This patient has no known problems. Allergies, Adverse Reactions, Alerts This patient has no known allergies or adverse reactions. Medications This patient has no known medications. Procedures This patient has no known procedures. Encounters Start End Encounter Admission Attending Care Care Encounter Source Date/Time Date/Time Type Type Clinicians Facility Department ID 2021-05-27 2021-05-27 Outpatient [facility] [id number] [facility] 00:00:00 00:00:00 [facility] Results This patient has no known results.
[2021-07-30 11:29] LABS: Absolute Lymphocytes (CBC) 1.7 K/uL (0.7-4.9); Basophils % 0.5 % (0-1.3); Lymphocytes % 28.6 % (15.3-44.8); MPV 8.1 fL (7.6-11.3); RBC Red Blood Cell Count 4.92 M/uL (4.33-5.43)
[2021-07-30 11:47] LABS: ALT/SGPT 29 U/L (12-78); AST/SGOT 18 U/L (15-37); Albumin 4.1 g/dL (3.4-5.0); Alkaline Phosphatase 63 U/L (45-117); BUN Blood Urea Nitrogen 20 mg/dL (7-18); Bicarbonate 26 mmol/L (21-32); Bilirubin Direct 0.2 mg/dL (0-0.2); Bilirubin Total 0.6 mg/dL (0.2-1.0); Glucose Level 90 mg/dL (74-106); NT PRO-BNP 18 pg/mL (<125); Potassium 4.2 mmol/L (3.5-5.1); Protein, Total 7.4 g/dL (6.4-8.2); Sodium Level 139 mmol/L (136-145); Troponin (Emerg Dept Use Only) < 0.02 ng/mL (0.0-0.045)
--- NOTE | 2021-07-30 12:22 | RAD REPORT ---
EXAM DESCRIPTION: RAD - Chest Single View - 07/30/2021 12:01 pm CLINICAL HISTORY: CHEST PAIN COMPARISON: Chest Single View dated 09/20/2017; CHEST SINGLE VIEW dated 12/11/2014 FINDINGS: Lines: None. Lungs: No evidence of edema or pneumonia. Pleural: No significant pleural effusions or pneumothorax. Cardiac: The heart size is within normal limits. Bones: No acute fractures. Other: IMPRESSION: No acute cardiopulmonary disease.
--- NOTE | 2021-07-30 15:00 | ER ---
Nurse's Notes [facility] Name: Pola Ceron Jr Age: 50 yrs Sex: Male : 1970 Arrival Date: 07/30/2021 Time: 10:58 Bed 15 Private MD: Diagnosis: Chest pain, unspecified Presentation: 07/30 10:58 Chief complaint: Patient states: Sudden onset of chest pain. Coronavirus screen: ch5 Vaccine status:. Ebola Screen: Patient negative for fever greater than or equal to 101.5 degrees Fahrenheit, and additional compatible Ebola Virus Disease symptoms Patient denies exposure to infectious person. Patient denies travel to an Ebola-affected area in the 21 days before illness onset. Initial Sepsis Screen: Does the patient meet any 2 criteria? No. Patient's initial sepsis screen is negative. Initial Sepsis Screen: Does the patient have a suspected source of infection? No. Patient's initial sepsis screen is negative. Risk Assessment: Do you want to hurt yourself or someone else? Patient reports no desire to harm self or others. Onset of symptoms was July 30, 2021 at 10:00. 10:58 Method Of Arrival: EMS: -[place] [id number] 10:58 Acuity: LISSETTE 2 ch5 Triage Assessment: 11:07 General: Appears Diaphoretic . Behavior is calm, cooperative. Pain: Complains of pain ch5 in chest Pain currently is 2 out of 10 on a pain scale. at worst was 10 out of 10 on a pain scale. Cardiovascular: Reports chest pain, Rhythm is sinus bradycardia. Historical: - Immunization history:: Adult Immunizations up to date, Client reports receiving the 2nd dose of the Covid vaccine, DEC. - Social history:: Smoking status: Patient/guardian denies using tobacco. - Family history:: not pertinent. - Hospitalizations: : No recent hospitalization is reported. Screenin:10 Abuse screen: Denies threats or abuse. Denies injuries from another. Nutritional ch5 screening: No deficits noted. Tuberculosis screening: No symptoms or risk factors identified. Fall Risk None identified. Assessment: 11:10 Visitor restriction implemented due to in-person visitations may lead to the ch5 transmission of an infectious agent. Restricted visitation is valid for not more than 5 days unless renewed by the attending provider. The client's visitor/family were updated. Visitor at bedside. Reassessment: No changes from previously documented assessment. General: Appears comfortable. Cardiovascular: Reports chest pain, Rhythm is sinus bradycardia. Vital Signs: 10:58 Pulse 58; Resp 12; Pulse Ox 99% on R/A; Weight 122.47 kg; Height 6 ft. (182.88 cm); ch5 Pain 2/10; 11:10 BP 125 / 80; Pulse 59; Resp 18; Pulse Ox 98% on R/A; Pain 2/10; ch5 12:14 BP 125 / 72; Pulse 55; Resp 18; Pulse Ox 99% on R/A; Pain 1/10; ch5 13:00 BP 119 / 68; Pulse 58; Resp 15; Pulse Ox 100% on R/A; mh5 14:22 BP 109 / 84; Pulse 53; Resp 15; Temp 97.8(TE); Pulse Ox 100% on R/A; mh5 10:58 Body Mass Index 36.62 (122.47 kg, 182.88 cm) 5 ED Course: 10:58 Patient arrived in ED. [facility] 10:58 Edy Chaudhary MD is Attending Physician. rn 10:58 Anderson Henriquez RN is Primary Nurse. [facility] 11:07 Triage completed. 5 11:07 Arm band placed on right wrist. EKG completed in triage. Results shown to MD. [facility] 11:10 Patient has correct armband on for positive identification. Bed in low position. Call ch5 light in reach. Side rails up X2. 11:10 No provider procedures requiring assistance completed. Inserted saline lock: 18 gauge ch5 in right antecubital area, using aseptic technique. 11:12 EKG done, by ED staff, reviewed by Edy Chaudhary MD. 5 11:13 Pillow given. quality assurance monitor chassis on. Pulse ox on. NIBP on. 5 11:56 X-ray completed. Portable x-ray completed in exam room. Patient tolerated procedure md1 well. 11:58 XRAY Chest (1 view) Sent. ch5 12:01 XRAY Chest (1 view) In Process Unspecified. EDMS 13:42 Troponin (emerg Dept Use Only) Sent. ch5 15:36 IV discontinued, intact, bleeding controlled, No redness/swelling at site. Pressure ss dressing applied. Administered Medications: No medications were administered Outcome: 14:59 Discharge ordered by . rn 15:36 Discharged to home ambulatory. ss 15:36 Condition: good 15:36 Discharge instructions given to patient, Instructed on discharge instructions, follow up and referral plans. Demonstrated understanding of instructions, follow-up care, medications. 15:37 Patient left the ED. ss Signatures: Dispatcher [employer] EDMS Edy Chaudhary MD MD rn Smirch, Shelby, RN RN Morena Galindo Rosio Benoit md Anderson Henriquez RN RN ch5 Corrections: (The following items were deleted from the chart) 11:07 11:07 PMHx: HEARING IMPAIRED; ch5 ch5 11:07 11:07 PMHx: Kidney stones; ch5 ch5
--- NOTE | 2021-07-30 15:00 | EDPHYS ---
Physician Documentation [facility] Name: Pola Ceron Jr Age: 50 yrs Sex: Male : 1970 Arrival Date: 07/30/2021 Time: 10:58 Bed 15 Private MD: ED Physician Edy Chaudhary HPI: 07/30 11:06 This 50 yrs old Male presents to ER via Unassigned with complaints of Chest rn pain. 11:06 The patient or guardian reports chest pain that is located primarily in the substernal rn area. Onset: just prior to arrival. The pain radiates to Associated signs and symptoms: Pertinent positives: palpitations, shortness of breath, Pertinent negatives: abdominal pain, cough, diaphoresis, headache, near syncope, syncope, vomiting. 11:06 The chest pain is described as squeezing. Duration: The patient or guardian reports a rn single episode, that is now resolved. Modifying factors: The symptoms are alleviated by nothing. the symptoms are aggravated by nothing. Severity of pain: At its worst the pain was mild in the emergency department the pain has improved. EMS care prior to arrival includes: aspirin. The patient has experienced a previous episode. The patient has not recently seen a physician. 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 Lasted about 15 to 20 minutes, EMS administered aspirin, now pretty much back to baseline without any discomfort or difficulty breathing. States had a panic attack years ago but this feels a little different. No known lung or heart problems. Patient denies recent illness. Reports had Covid months ago.. Historical: - Immunization history:: Adult Immunizations up to date, Client reports receiving the 2nd dose of the Covid vaccine, DEC. - Social history:: Smoking status: Patient/guardian denies using tobacco. - Family history:: not pertinent. - Hospitalizations: : No recent hospitalization is reported. ROS: 11:06 Constitutional: Negative for fever, chills, and weight loss, Eyes: Negative for injury, rn pain, redness, and discharge, Neck: Negative for injury, pain, and swelling, Cardiovascular: Positive for chest pain and palpitations Respiratory: Positive for shortness of breath Abdomen/GI: Negative for abdominal pain, nausea, vomiting, diarrhea, and constipation, Back: Negative for injury and pain, : Negative for injury, bleeding, discharge, and swelling, MS/Extremity: Negative for injury and deformity, Skin: Negative for injury, rash, and discoloration, Neuro: Negative for headache, weakness, numbness, tingling, and seizure. 11:06 All other systems are negative. Exam: 11:06 Constitutional: This is a well developed, well nourished patient who is awake, alert, rn and in no acute distress. Head/Face: Normocephalic, atraumatic. Eyes: Periorbital areas with no swelling, redness, or edema. ENT: No stridor Cardiovascular: Regular rate and rhythm. No pulse deficits. Respiratory: No increased work of breathing, no retractions or nasal flaring. Abdomen/GI: Soft, non-tender Skin: Warm, dry with normal turgor. Normal color with no rashes, no lesions, and no evidence of cellulitis. MS/ Extremity: Pulses equal, no cyanosis. Neurovascular intact. Full, normal range of motion. Equal circumference. Neuro: Awake and alert, GCS 15 14:56 ECG was reviewed by the Attending Physician. rn Vital Signs: 10:58 Pulse 58; Resp 12; Pulse Ox 99% on R/A; Weight 122.47 kg; Height 6 ft. (182.88 cm); ch5 Pain 2/10; 11:10 BP 125 / 80; Pulse 59; Resp 18; Pulse Ox 98% on R/A; Pain 2/10; ch5 12:14 BP 125 / 72; Pulse 55; Resp 18; Pulse Ox 99% on R/A; Pain 1/10; ch5 13:00 BP 119 / 68; Pulse 58; Resp 15; Pulse Ox 100% on R/A; mh5 14:22 BP 109 / 84; Pulse 53; Resp 15; Temp 97.8(TE); Pulse Ox 100% on R/A; mh5 10:58 Body Mass Index 36.62 (122.47 kg, 182.88 cm) ch5 MDM: 10:58 Patient medically screened. rn 14:56 Differential diagnosis: acute myocardial infarction, acute pericarditis, anxiety, rn coronary artery disease chest wall pain, costochondritis, esophagitis, gastritis, gastroesophageal reflux disease (GERD), pleurisy, pneumonia, pneumothorax, pulmonary embolus, stable angina. HEART Score: History: Slightly Suspicious (0), ECG: Normal (0), Age: > 45 and < 65 years (1), Risk Factors: No Risk Factors Known (0), Troponin: < or = 1 x Normal Limit (0), Total Score = 1. The patient was not given aspirin in the Emergency Department. Administered by EMS. The patient's pulmonary embolism risk score was calculated as follows: No Risks (0 Pts) Total Score: 0-2 points. This patient was found to be at low risk for a pulmonary embolism by using the Well's assessment criteria. ERIN Risk Score: TOTAL SCORE = 0. Data reviewed: vital signs, nurses notes, lab test result(s), EKG, radiologic studies, plain films, and as a result, I will discharge patient. Data interpreted: color television console monitor: rate is 53 beats/min, rhythm is normal sinus rhythm, regular, with no ectopy, Interpretation: bradycardia, Pulse oximetry: on room air is 100 %. Interpretation: normal. Test interpretation: by ED physician or midlevel provider: ECG, plain radiologic studies, Chest x-ray negative for pneumothorax or pneumonia. Counseling: I had a detailed discussion with the patient and/or guardian regarding: the historical points, exam findings, and any diagnostic results supporting the discharge/admit diagnosis, lab results, radiology results, the need for outpatient follow up, to return to the emergency department if symptoms worsen or persist or if there are any questions or concerns that arise at home. Response to treatment: the patient's condition has returned to base line, the patient is now symptom free, and as a result, I will discharge patient. Special discussion: Based on the patient's history, exam, and Dx evaluation, there is no indication for emergent intervention or inpatient Tx. It is understood by the patient/guardian that if the Sx's persist or worsen they need to return immediately for re-evaluation. I discussed with the patient/guardian in detail that at this point there is no indication for admission to the hospital. It is understood, however, that if the symptoms persist or worsen the patient needs to return immediately for re-evaluation. Based on the history and exam findings, there is no indication for further emergent testing or inpatient evaluation. I discussed with the patient/guardian the need to see the returning officer for further evaluation of the symptoms. I discussed with the patient/guardian the need to see the primary care provider for further evaluation of the symptoms. ED course: Troponin negative x2, no ischemia on EKG initially or on repeat. D-dimer normal. Chest x-ray negative. Will DC home with PCP and cardiology follow-up. 07/30 10:58 Order name: Basic Metabolic Panel; Complete Time: 12:11 rn 07/30 10:58 Order name: CBC with Diff; Complete Time: 12:11 rn 07/30 10:58 Order name: LFT's; Complete Time: 12:11 rn 07/30 10:58 Order name: Magnesium; Complete Time: 12:11 rn 07/30 10:58 Order name: NT PRO-BNP; Complete Time: 12:11 rn 07/30 10:58 Order name: PT-INR; Complete Time: 12: rn 07/30 10:58 Order name: Troponin (emerg Dept Use Only); Complete Time: 12:11 rn 07/30 10:58 Order name: XRAY Chest (1 view); Complete Time: 12:30 rn 07/30 10:58 Order name: EKG; Complete Time: 10:59 rn 07/30 10:58 Order name: Cardiac monitoring; Complete Time: 11: rn 07/30 11:06 Order name: D-Dimer; Complete Time: 12:11 rn 07/30 13:06 Order name: Troponin (emerg Dept Use Only) rn 07/30 13:06 Order name: EKG; Complete Time: 13:07 rn 07/30 13:06 Order name: Troponin (Emerg Dept Use Only); Complete Time: 14:56 EDMS 07/30 10:58 Order name: EKG - Nurse/Tech; Complete Time: 11: rn 07/30 10:58 Order name: IV Saline Lock; Complete Time: 11: rn 07/30 10:58 Order name: Labs collected and sent; Complete Time: 11: rn 07/30 10:58 Order name: O2 Per Protocol; Complete Time: : rn 07/30 10:58 Order name: O2 Sat Monitoring; Complete Time: 11: rn 07/30 13:06 Order name: EKG - Nurse/Tech; Complete Time: 13:36 rn EC:56 Rate is 55 beats/min. Rhythm is regular. QRS [place] is Normal. OK interval is normal. QRS rn interval is normal. QT interval is normal. No Q waves. T waves are Normal. No ST changes noted. Clinical impression: Sinus bradycardia. Interpreted by me. Reviewed by me. Administered Medications: No medications were administered Disposition Summary: 07/30/21 14:59 Discharge Ordered Location: Home rn Problem: new rn Symptoms: are resolved rn Condition: Stable rn Diagnosis - Chest pain, unspecified rn Followup: rn - With: Private Physician - When: As needed - Reason: Recheck today's complaints, Re-evaluation by your physician Discharge Instructions: - Discharge Summary Sheet rn - Nonspecific Chest Pain, Adult rn Forms: - Medication Reconciliation Form rn - Thank You Letter rn - Antibiotic mold burner - Prescription Opioid Use rn - Work release form ss Signatures: Dispatcher [employer] EDEdy Daniel MD MD rn Heath, Christopher, RN RN [facility] Corrections: (The following items were deleted from the chart) 11:07 11:07 PMHx: HEARING IMPAIRED; ch5 ch5 11:07 11:07 PMHx: Kidney stones; ch5 ch5 14:56 11:06 Constitutional: This is a well developed, well nourished patient who is awake, rn alert, and in no acute distress. Head/Face: Normocephalic, atraumatic. Eyes: Periorbital areas with no swelling, redness, or edema. ENT: No stridor Cardiovascular: Regular rate and rhythm. No pulse deficits. Respiratory: No increased work of breathing, no retractions or nasal flaring. Abdomen/GI: Soft, non-tender Skin: Warm, dry with normal turgor. Normal color with no rashes, no lesions, and no evidence of cellulitis. MS/ Extremity: Pulses equal, no cyanosis. Neurovascular intact. Full, normal range of motion. Equal circumference. Neuro: Awake and alert, GCS 15 rn
[2021-07-30 15:46] VITALS: O2SAT 100
[2021-07-30 15:47] VITALS: BP 109/84; TEMP 97.8
== END 2021-07-30 15:37 | disposition home or self-care (01) ==
LOC: ER 10:55
DX: R07.9 Chest pain, unspecified (principal); R00.2 Palpitations
CPT/HCPCS: 36415; 71045; 80048; 80076; 83735; 83880; 84484; 85025; 85379; 85610; 93005; 99284

== ENCOUNTER 2022-09-23 06:42 | Inpatient (IN) | payer BC ==
--- OUTSIDE RECORDS SUMMARY | 2022-09-23 06:46 | XMS REPORT | Continuity of Care Document ---
:1970 Author Organization [facility] t Address [address] [place] [address] Care Team Providers Name Role Phone Kd Upton Attending Clinician Unavailable PAPA LOCKHART Attending Clinician Unavailable Lab, Adc Fam Pob I Attending Clinician Unavailable Papa Soria Attending Clinician Payers Payer Name Policy Type Policy Number Effective Date Expiration Date S ource Blue Cross C1 [id number] [facility] t Blue [facility] [id number] 2017 - OUT OF STATE 00:00:00 Problems Condition Condition Condition Status Onset Resolution Last Treating Co mments Source Name Details Category Date Date Treatment Clinician Date [id number] Right Problem Active Common bicipital [facility] tenosynovi - [facility] tis [facility] [id number] Pain in Problem Active Comm on [id number] joint of Spirit right [facility] [id number] Subacromia Problem Active C ommon [id number] l bursitis [facility] of right - [facility] shoulder [facility] Allergies, Adverse Reactions, Alerts Allergy Allergy Status Severity Reaction(s) Onset Inactive Treating Comm ents Source Name Type Date Date Clinician NO KNOWN Drug Active Univers ALLERGIE Class ity of [facility] Medical Speculator Social History Social Habit Start Date Stop Date Quantity Comments Source Exposure to SARS-CoV-2 [facility] sure [facility] History of Tobacco Use Co mmon Spirit [facility] Sex Assigned At Com mon [facility] Smoking Status Start Date Stop Date Source Unknown if ever smoked [facility] Never Smoker Common [facility] Medications Ordered Filled Start Stop Current Ordering Indication Dosage Frequency Signature Comments Components Source Medication Medication Date Date Medication? Clinician (SIG) Name Name traMADol traMADol 2020-11 No 1{table traMADol HCl 50 MG HCl 50 MG 2-22 t_as_ne HCl 50 MG 00:00: eded} 00 traMADol traMADol 2020-11 No 1{table traMADol HCl 50 MG HCl 50 MG 2-22 t_as_ne HCl 50 MG 00:00: eded} 00 methylPREDN methylPREDN No methylPRED Common ISolone 4 ISolone 4 NISolone 4 Spirit MG MG [facility] Hydroxychlo Hydroxychlo No Hydroxychl Common roquine roquine oroquine Spiri t Sulfate 200 Sulfate 200 Sulfate - CHI MG MG 200 MG [facility] Guaiatussin Guaiatussin No Guaiatussi Common AC 100-10 AC 100-10 n AC Spiri t MG/5ML MG/5ML 100-10 - CHI MG/5ML [facility] Montelukast Montelukast No Montelukas Common Sodium 10 Sodium 10 t Sodium S pirit MG MG 10 MG [facility] Fexofenadin Fexofenadin No Fexofenadi Common e HCl 180 e HCl 180 ne HCl 180 Spirit MG MG MG [facility] Acetaminoph Acetaminoph No Acetaminop Common en-Codeine en-Codeine hen-Codein Spirit #3 300-30 #3 300-30 e #3 - CHI MG MG 300-30 MG [facility] Meloxicam Meloxicam No Meloxicam Common [facility] Meclizine Meclizine No Meclizine Common HCl 25 MG HCl 25 MG HCl 25 MG [facility] predniSONE predniSONE No predniSONE Common 10 MG 10 MG 10 MG [facility] Azithromyci Azithromyci No Azithromyc Common n 250 MG n 250 MG in 250 MG Sp shannon [facility] methylPREDN methylPREDN No methylPRED ISolone 4 ISolone 4 NISolone 4 MG MG MG Acetaminoph Acetaminoph No Acetaminop en-Codeine en-Codeine hen-Codein #3 300-30 #3 300-30 e #3 MG MG 300-30 MG Guaiatussin Guaiatussin No Guaiatussi AC 100-10 AC 100-10 n AC MG/5ML MG/5ML 100-10 MG/5ML Hydroxychlo Hydroxychlo No Hydroxychl roquine roquine oroquine Sulfate 200 Sulfate 200 Sulfate MG MG 200 MG Montelukast Montelukast No Montelukas Sodium 10 Sodium 10 t Sodium MG MG 10 MG Fexofenadin Fexofenadin No Fexofenadi e HCl 180 e HCl 180 ne HCl 180 MG MG MG Azithromyci Azithromyci No Azithromyc n 250 MG n 250 MG in 250 MG Meloxicam Meloxicam No Meloxicam Meclizine Meclizine No Meclizine HCl 25 MG HCl 25 MG HCl 25 MG predniSONE predniSONE No predniSONE 10 MG 10 MG 10 MG Montelukast Montelukast No Montelukas Sodium 10 Sodium 10 t Sodium MG MG 10 MG methylPREDN methylPREDN No methylPRED ISolone 4 ISolone 4 NISolone 4 MG MG MG Azithromyci Azithromyci No Azithromyc n 250 MG n 250 MG in 250 MG Guaiatussin Guaiatussin No Guaiatussi AC 100-10 AC 100-10 n AC MG/5ML MG/5ML 100-10 MG/5ML Meloxicam Meloxicam No Meloxicam Meclizine Meclizine No Meclizine HCl 25 MG HCl 25 MG HCl 25 MG predniSONE predniSONE No predniSONE 10 MG 10 MG 10 MG Acetaminoph Acetaminoph No Acetaminop en-Codeine en-Codeine hen-Codein #3 300-30 #3 300-30 e #3 MG MG 300-30 MG Fexofenadin Fexofenadin No Fexofenadi e HCl 180 e HCl 180 ne HCl 180 MG MG MG Hydroxychlo Hydroxychlo No Hydroxychl roquine roquine oroquine Sulfate 200 Sulfate 200 Sulfate MG MG 200 MG Tylenol # 3 Tylenol # 3 No Tylenol # 3 Immunizations Ordered Immunization Filled Immunization Date Status Commen ts Source Name Name Bupivicaine [place] Bupivicaine [place] 2021-04-03 Completed [facility] 15:46:[address] [facility] Kenalog Kenalog 2021-04-03 Completed [facility] (Triamcinolone) (Triamcinolone) 15:46:00 [facility] LIDOCAINE HCL LIDOCAINE HCL 2019-06-21 Completed Common S pirit 10MG/ML 10MG/ML 09:59:00 [facility] Kenalog Kenalog 2019-06-21 Completed [facility] (Triamcinolone) (Triamcinolone) 09:53:00 [facility] Vital Signs Vital Name Observation Time Observation Value Comments Source height 2021-12-04 15:30:00 72 [in_i] Common S pirit [facility] weight 2021-12-04 15:30:00 259 [lb_av] [facility] temperature 2021-12-04 15:30:00 97.7 [degF] Common S pirit [facility] bmi 2021-12-04 15:30:00 35.12 kg/m2 Common S pirit [facility] blood pressure 2021-12-04 15:30:00 122 mm[Hg] [facility] - systolic [facility] blood pressure 2021-12-04 15:30:00 78 mm[Hg] [facility] - diastolic [facility] height 2021-05-27 15:00:00 72 [in_i] Common S pirit [facility] weight 2021-05-27 15:00:00 259 [lb_av] [facility] S pirit [facility] temperature 2021-05-27 15:00:00 97.5 [degF] Common S pirit [facility] bmi 2021-05-27 15:00:00 35.12 kg/m2 Common S pirit [facility] blood pressure 2021-05-27 15:00:00 130 mm[Hg] [facility] - systolic [facility] blood pressure 2021-05-27 15:00:00 72 mm[Hg] [facility] - diastolic [facility] Procedures This patient has no known procedures. Encounters Start End Encounter Admission Attending Care Care Encounter Source Date/Time Date/Time Type Type Clinicians Facility Department ID 2021-12-24 Outpatient Kd Upton STLMLC STLMLC [id number] Common 13:49:46 [id number] [facility] 2021-12-24 Outpatient Kd Upton STLMLC STLMLC [id number] Common 13:20:35 [id number] [facility] 2021-12-04 2021-12-04 OFFICE STLMLC STLMLC [id number] Co mmon 00:00:00 00:00:00 VISIT Spirit ESTAB PT - [facility]I LEVEL 4 [facility] 2021-11-19 2021-11-19 (TEL) STLMLC STLMLC [id number] Co mmon 00:00:00 00:00:00 [facility] 2021-05-27 2021-05-27 OFFICE STLMLC STLMLC [id number] Co mmon 00:00:00 00:00:00 VISIT EST Spir it PT LEVEL 3 - [facility] 2020-12-13 2020-12-13 Outpatient R [facility] [id number] Univers 17:40:00 17:40:00 PAPA degroot [facility] 2020-12-13 2020-12-13 Laboratory Lab, Adc Fam Pob I [facility] 1.2. [id number] Univers 17:19:15 17:39:15 Only Papa Lockhart [facility] [id number] itNicolás [id number] Rex as Professio [phone] [address] One Results This patient has no known results.
[2022-09-23] MEDS ORDERED: FAMOTIDINE 20 MG/2 ML VIAL IV ONE (07:26)
[2022-09-23 07:57] LABS: Absolute Lymphocytes (CBC) 1.1 K/uL (0.7-4.9); Hematocrit 42.3 % (39.6-49.0); Lymphocytes % 19.6 % (15.3-44.8); MCV 89.2 fL (80-100); MPV 7.6 fL (7.6-11.3); RBC Red Blood Cell Count 4.74 M/uL (4.33-5.43)
[2022-09-23 08:16] LABS: Albumin 3.5 g/dL (3.4-5.0); Bilirubin Total 0.6 mg/dL (0.2-1.0); Potassium 4.1 mmol/L (3.5-5.1); Protein, Total 7.3 g/dL (6.4-8.2)
--- NOTE | 2022-09-23 08:39 | RAD REPORT ---
EXAM DESCRIPTION: CTAbdomen Pelvis W Contrast - 09/23/2022 8:31 am CLINICAL HISTORY: lower abdominal pain radiating to the back COMPARISON: No comparisons TECHNIQUE: CT of the abdomen and pelvis was performed. All CT scans are performed using dose optimization technique as appropriate and may include automated exposure control or mA/KV adjustment according to patient size. FINDINGS: Lower chest: No acute abnormality. Liver: No acute abnormality or suspicious lesions. Biliary: No biliary ductal dilatation. Stomach: No significant focal abnormality. Duodenum: No significant focal abnormality. Pancreas: No significant abnormality. Spleen: No significant abnormality. Adrenal: No suspicious lesions. Kidney/ureter: No hydronephrosis. No renal calculi. Retroperitoneum: No retroperitoneal adenopathy. Vascular: No aneurysm. Bowel: Proximal sigmoid diverticulitis. Findings is suspicious for a small contained perforation. Tra ce extraluminal gas near the diverticulum. No abscess.. Normal appendix. No bowel obstruction. Peritoneum: No ascites or free air. Bladder: Grossly unremarkable. Reproductive: No adnexal masses. Bones: No acute fracture. L4 through S1 fusion. Other: n/a IMPRESSION: Proximal sigmoid diverticulitis with microperforation. No abscess.
[2022-09-23 08:52] LABS: Urine Blood Negative (Negative); Urine Glucose Negative (Negative); Urine Protein Negative (Negative); Urine Specific Gravity 1.015 (1.005-1.030); Urine pH 6.5 (5.0-7.0)
[2022-09-23 08:57] LABS: Urine RBC <5 /HPF (None Seen)
[2022-09-23] MEDS ORDERED: PIPERACIL/TAZO 3.375 GM VIAL IV ONE (09:15)
[2022-09-23] MEDS ORDERED: NA CHLORIDE 0.9% 100 ML IV ONE (09:15)
--- NOTE | 2022-09-23 09:32 | EDPHYS ---
Physician Documentation [facility] Name: Pola Ceron Jr Age: 51 yrs Sex: Male : 1970 Arrival Date: 09/23/2022 Time: 06:47 Bed 20 Private MD: ED Physician Terrence Cabezas HPI: 09/23 07:15 This 51 yrs old Male presents to ER via Ambulatory with complaints of Abdominal Pain, ms3 Back Pain. 07:15 The patient presents with abdominal pain in the lower abdomen. Onset: The ms3 symptoms/episode began/occurred acutely, 4 day(s) ago. The symptoms radiate to back. Associated signs and symptoms: Pertinent positives: diarrhea, Pertinent negatives: nausea and vomiting. The symptoms are described as crampy. Modifying factors: The symptoms are alleviated by nothing, the symptoms are aggravated by nothing. Severity of pain: At its worst the pain was moderate in the emergency department the pain is unchanged. 51-year-old male with past medical history of hearing impairment presents for lower abdominal pain that began on Wednesday. Patient rates his pain a 6/10 located in his lower abdomen. Patient states the pain radiates to his back. Patient denies alleviating or inciting factors. Patient endorses diarrhea. Patient denies nausea, vomiting.. Historical: - Allergies: 07:12 No Known Allergies; jl7 - Home Meds: 07:12 None [Active]; jl7 - PMHx: 07:12 None; jl7 - PSHx: 07:12 None; jl7 - Immunization history:: Client reports having NOT received the Covid vaccine. - Social history:: Smoking status: Patient denies any tobacco usage or history of. ROS: 07:15 Constitutional: Negative for fever, and chills. Neck: Negative for injury, pain, and ms3 swelling, Cardiovascular: Negative for chest pain, and palpitations. Respiratory: Negative for shortness of breath, cough, wheezing, and pleuritic chest pain. 07:15 Skin: Negative for injury, rash, and discoloration. 07:15 Abdomen/GI: Positive for abdominal pain, Negative for nausea, vomiting, and diarrhea. 07:15 All other systems are negative. Exam: 07:15 Constitutional: This is a well developed, well nourished patient who is awake, alert, ms3 and in no acute distress. Head/Face: Normocephalic, atraumatic. Neck: Trachea midline, no cervical lymphadenopathy. Supple, full range of motion without nuchal rigidity, or vertebral point tenderness. No Meningismus. Chest/axilla: Normal chest wall appearance and motion. Nontender with no deformity. Cardiovascular: Regular rate and rhythm with a normal S1 and S2. No gallops, murmurs, or rubs. Normal PMI, no JVD. No pulse deficits. Respiratory: Lungs have equal breath sounds bilaterally, clear to auscultation and percussion. No rales, rhonchi or wheezes noted. No increased work of breathing, no retractions or nasal flaring. 07:15 Skin: Warm, dry with normal turgor. Normal color with no rashes, no lesions, and no evidence of cellulitis. 07:15 Abdomen/GI: Inspection: abdomen appears normal, Bowel sounds: normal, Palpation: moderate abdominal tenderness, in the right lower quadrant and left lower quadrant. Vital Signs: 07:10 BP 126 / 88; Pulse 53; Resp 17; Temp 97.6; Pulse Ox 99% ; Weight 120.2 kg; Height 6 ft. jl7 (182.88 cm); Pain 6/10; 07:41 BP 153 / 79; Pulse 57; Resp 18; Pulse Ox 99% ; Pain 5/10; db 08:02 BP 112 / 66; Pulse 57; Resp 18; Pulse Ox 99% on R/A; db 09:00 BP 129 / 73; Pulse 52; Resp 16; Pulse Ox 100% ; db 12:00 BP 137 / 54; Pulse 50; Resp 16; Pulse Ox 99% ; db 13:52 BP 137 / 79; Pulse 50; Resp 16; Temp 98(O); Pulse Ox 99% ; db 15:43 BP 138 / 66; Pulse 51; Resp 16; Temp 98; Pulse Ox 99% ; db 07:10 Body Mass Index 35.94 (120.20 kg, 182.88 cm) jl7 MDM: 07:14 Patient medically screened. ms3 07:15 Differential diagnosis: appendicitis, bowel obstruction, diverticulitis, non-specific ms3 abd pain. 09:33 Data reviewed: vital signs, nurses notes, lab test result(s), radiologic studies, and ms3 as a result, I will admit patient. Counseling: I had a detailed discussion with the patient and/or guardian regarding: the historical points, exam findings, and any diagnostic results supporting the discharge/admit diagnosis, lab results, radiology results, the need for further work-up and treatment in the hospital. ED course: Discussed case with Dr Chaudhary and he accepts patient. VM left with Dr Galindo. Discussed plan with patient and he understands/ agrees with plan. All questions answered. patient remains in stable condition.. 09:43 ED course: Case discussed with Dr Galindo and he will consult on patient.. ms3 09/23 07:14 Order name: CBC with Diff; Complete Time: 09:07 ms3 09/23 07:14 Order name: CMP; Complete Time: 09:07 ms3 09/23 07:14 Order name: Lipase; Complete Time: 09:07 ms3 09/23 07:14 Order name: Urine Microscopic Only; Complete Time: 09:07 ms3 09/23 08:53 Order name: Urine Dipstick-Ancillary; Complete Time: 09:07 EDMS 09/23 09:38 Order name: SARS-COV-2 Antigen Rapid bd 09/23 07:14 Order name: CT Abd/Pelvis - IV Contrast Only; Complete Time: 09:07 ms3 09/23 10:21 Order name: Protime (+INR); Complete Time: 13:48 EDMS 09/23 10:25 Order name: SARS-COV-2 Antigen Rapid; Complete Time: 13:48 EDMS 09/23 10:32 Order name: Phosphorus; Complete Time: 13:48 EDMS 09/23 10:32 Order name: Creatine Phosphokinase; Complete Time: 13:48 EDMS 09/23 10:32 Order name: NT PRO-BNP; Complete Time: 13:48 EDMS 09/23 10:32 Order name: Magnesium; Complete Time: 13:48 EDMS 09/23 07:14 Order name: IV Saline Lock; Complete Time: 08:19 ms3 09/23 07:14 Order name: Labs collected and sent; Complete Time: 08:19 ms3 09/23 07:14 Order name: Urine Dipstick-Ancillary (obtain specimen); Complete Time: 09:10 ms3 09/23 09:37 Order name: CONS Physician Consult EDMS Administered Medications: 07:54 Drug: Pepcid (famotidine) 20 mg Route: IVP; Site: right antecubital; db 08:30 Follow up: Response: No adverse reaction db 09:42 Drug: Zosyn (piperacillin-tazobactam) 3.375 grams Route: IVPB; Infused Over: 60 mins; db Site: right antecubital; 10:15 Follow up: Response: No adverse reaction; IV Status: Completed infusion; IV Intake: db 100ml Disposition Summary: 09/23/22 09:31 Hospitalization Ordered Hospitalization Status: Inpatient Admission ms3 Provider: Yoav Chaudhary ms3 Location: Telemetry/MedSur (Inpatient) ms3 Condition: Stable ms3 Problem: new ms3 Symptoms: are unchanged ms3 Bed/Room Type: Standard ms3 Room Assignment: 208(09/23/22 14:48) bd Diagnosis - Sigmoid diverticulitis with perforation without abscess ms3 - Lower abdominal pain, unspecified ms3 Forms: - Medication Reconciliation Form ms3 - SBAR form ms3 Signatures: Dispatcher [employer] EDTaylor Torres Jahala, RN RN jl7 Terrence Cabezas DO DO ms3 Alondra Denton RN RN db Corrections: (The following items were deleted from the chart) 14:48 09:31 ms3 bd
--- NOTE | 2022-09-23 09:32 | ER ---
Nurse's Notes [facility] Name: Pola Ceron Jr Age: 51 yrs Sex: Male : 1970 Arrival Date: 09/23/2022 Time: 06:47 Bed 20 Private MD: Diagnosis: Sigmoid diverticulitis with perforation without abscess;Lower abdominal pain, unspecified Presentation: 09/23 07:10 Chief complaint: Patient states: Wednesday lower abdominal cramping and diarrhea, Wednesday jl7 with chills and aches, low back pain. Coronavirus screen: chills, diarrhea, Client presents with at least one sign or symptom that may indicate coronavirus-19. Standard/surgical mask placed on the client. Provider contacted for isolation considerations. Ebola Screen: No symptoms or risks identified at this time. Initial Sepsis Screen: Does the patient meet any 2 criteria? No. Patient's initial sepsis screen is negative. Does the patient have a suspected source of infection? No. Patient's initial sepsis screen is negative. Risk Assessment: Do you want to hurt yourself or someone else? Patient reports no desire to harm self or others. Onset of symptoms was September 19, 2022. 07:10 Method Of Arrival: Ambulatory jl7 07:10 Acuity: LISSETTE 3 jl7 Triage Assessment: 07:12 General: Appears in no apparent distress. uncomfortable, Behavior is calm, cooperative, jl7 appropriate for age. Pain: Complains of pain in right lower quadrant and left lower quadrant Pain currently is 6 out of 10 on a pain scale. GI: Reports diarrhea. Historical: - Allergies: 07:12 No Known Allergies; jl7 - Home Meds: 07:12 None [Active]; jl7 - PMHx: 07:12 None; jl7 - PSHx: 07:12 None; jl7 - Immunization history:: Client reports having NOT received the Covid vaccine. - Social history:: Smoking status: Patient denies any tobacco usage or history of. Screenin:36 Abuse screen: Denies threats or abuse. Denies injuries from another. Nutritional db screening: No deficits noted. Tuberculosis screening: No symptoms or risk factors identified. Fall Risk None identified. No fall in past 12 months (0 pts). No secondary diagnosis (0 pts). IV access (20 points). Ambulatory Aid- None/Bed Rest/Nurse Assist (0 pts). Gait- Normal/Bed Rest/Wheelchair (0 pts) Mental Status- Oriented to own ability (0 pts). Total Nicholas Fall Scale indicates No Risk (0-24 pts). Assessment: 07:54 Reassessment: Patient appears in no apparent distress at this time. No changes from db previously documented assessment. Patient is alert, oriented x 3, equal unlabored respirations, skin warm/dry/pink. pain lower abdomen and diarrhea. patient is hearing impaired. GI: Abdomen is flat, non-distended, Bowel sounds present X 4 quads. Abd is soft Abdomen is tender to palpation in right lower quadrant and left lower quadrant Reports cramping, diarrhea. :. 08:30 Derm: No deficits noted. No signs and/or symptoms reported regarding the dermatologic db system. 08:30 Reassessment: Patient appears in no apparent distress at this time. Patient and/or db family updated on plan of care and expected duration. Pain level reassessed. 09:30 Reassessment: Patient appears in no apparent distress at this time. No changes from db previously documented assessment. Patient and/or family updated on plan of care and expected duration. Pain level reassessed. Patient is alert, oriented x 3, equal unlabored respirations, skin warm/dry/pink. Patient states feeling better. Patient states symptoms have improved. 10:56 Reassessment: Patient appears in no apparent distress at this time. Patient and/or db family updated on plan of care and expected duration. Pain level reassessed. Patient is alert, oriented x 3, equal unlabored respirations, skin warm/dry/pink. Patient states feeling better. General: Appears in no apparent distress. comfortable, Behavior is calm, cooperative, appropriate for age, quiet. Neuro: No deficits noted. Cardiovascular: No deficits noted. Respiratory: No deficits noted. EENT: No deficits noted. No signs and/or symptoms were reported regarding the EENT system. 13:05 Reassessment: Patient appears in no apparent distress at this time. No changes from db previously documented assessment. given food to eat. Vital Signs: 07:10 BP 126 / 88; Pulse 53; Resp 17; Temp 97.6; Pulse Ox 99% ; Weight 120.2 kg; Height 6 ft. jl7 (182.88 cm); Pain 6/10; 07:41 BP 153 / 79; Pulse 57; Resp 18; Pulse Ox 99% ; Pain 5/10; db 08:02 BP 112 / 66; Pulse 57; Resp 18; Pulse Ox 99% on R/A; db 09:00 BP 129 / 73; Pulse 52; Resp 16; Pulse Ox 100% ; db 12:00 BP 137 / 54; Pulse 50; Resp 16; Pulse Ox 99% ; db 13:52 BP 137 / 79; Pulse 50; Resp 16; Temp 98(O); Pulse Ox 99% ; db 15:43 BP 138 / 66; Pulse 51; Resp 16; Temp 98; Pulse Ox 99% ; db 07:10 Body Mass Index 35.94 (120.20 kg, 182.88 cm) jl7 ED Course: 06:47 Patient arrived in ED. ja2 07:05 Terrence Cabezas DO is Attending Physician. ms3 07:12 Triage completed. jl7 07:12 Arm band placed on right wrist. jl7 07:17 Alondra Denton, RN is Primary Nurse. db 07:54 Inserted saline lock: 20 gauge in right antecubital area, using aseptic technique. db Blood collected. 08:33 CT Abd/Pelvis - IV Contrast Only In Process Unspecified. EDMS 09:29 Terrence Cabezas DO is Hospitalizing Provider. ms3 09:30 Yoav Chaudhary MD is Hospitalizing Provider. ms3 13:52 Patient has correct armband on for positive identification. Bed in low position. Call db light in reach. Side rails up X 1. Report given to Giselle Morales. 15:43 No provider procedures requiring assistance completed. Patient admitted, IV remains in db place. Administered Medications: 07:54 Drug: Pepcid (famotidine) 20 mg Route: IVP; Site: right antecubital; db 08:30 Follow up: Response: No adverse reaction db 09:42 Drug: Zosyn (piperacillin-tazobactam) 3.375 grams Route: IVPB; Infused Over: 60 mins; db Site: right antecubital; 10:15 Follow up: Response: No adverse reaction; IV Status: Completed infusion; IV Intake: db 100ml Medication: 13:52 VIS not applicable for this client. db Intake: 10:15 IV: 100ml; Total: 100ml. db Outcome: 09:31 Decision to Hospitalize by Provider. ms3 15:43 Admitted to Med/surg accompanied by tech, via stretcher, with chart, Report called to db 208 nurse Giselle 15:43 Condition: stable 15:43 Instructed on the need for admit. 15:59 Patient left the ED. db Signatures: Dispatcher [employer] Lorin Kitchen, RN RN jl7 Terrence Cabezas, DO ms3 Caroline Moreno2 Alondra Denton, RN RN db Corrections: (The following items were deleted from the chart) 09:43 07:54 Reassessment: Patient appears in no apparent distress at this time. No changes db from previously documented assessment. Patient is alert, oriented x 3, equal unlabored respirations, skin warm/dry/pink. pain lower abdomen and diarrhea db
[2022-09-23] MEDS ORDERED: ACETAMINOPHEN 325 MG TABLET PO PRN (09:36)
[2022-09-23] MEDS ORDERED: ONDANSETRON 4 MG/2 ML VIAL IV PRN (09:39)
[2022-09-23] MEDS ORDERED: SODIUM CHLORIDE 0.9% 10ML INJ IV PRN (09:41)
--- NOTE | 2022-09-23 09:42 | P.HP ---
Certification for Inpatient Patient admitted to: Inpatient With expected LOS: >2 Midnights Patient will require the following post-hospital care: None Practitioner: I am a practitioner with admitting privileges, knowledge of patient current condition, hospital course, and medical plan of care. Services: Services provided to patient in accordance with Admission requirements found in Title 42 Section 412.3 of the Code of Federal Regulations Patient History Date of Service: 09/23/22 Reason for admission: Abd pain History of Present Illness: Patient is a 51-year-old male with no known past medical history who presents with complaint of abdominal pain located in the lower quadrants that has been ongoing for the past 5 days. Patient rated pain as 7/10 in severity and described pain as pressure in quality. Patient indicated that pain radiates to his back. Patient reported associated signs and symptoms of chills, headache and diarrhea. Patient denies any other signs or symptoms. Symptoms are aggravated or relieved by nothing.. Patient decided to present to the hospital due to worsening symptoms. Allergies No Known Drug Allergies Allergy (Verified 09/23/22 16:38) Unknown Home Medications: NK [No Home Meds] 09/23/22 - Past Medical/Surgical History Past Medical History: Reviewed- Non-Contributory Past Surgical History: Reviewed- Non-Contributory - Family History Family History: Reviewed- Non-Contributory - Social History Smoking Status: Never smoker Alcohol use: No CD- Drugs: No Caffeine use: Yes Place of Residence: Home Review of Systems General: Chills, Malaise Eyes: Unremarkable ENT: Unremarkable Respiratory: Unremarkable Cardiovascular: Unremarkable Gastrointestinal: Nausea, Abdominal Pain, Diarrhea Genitourinary: Unremarkable Musculoskeletal: Unremarkable Integumentary: Unremarkable Neurological: Other (HEadache) Lymphatics: Unremarkable Physical Examination - Physical Exam General: Alert, Oriented x3, Cooperative HEENT: Atraumatic, PERRLA, Mucous membr. moist/pink, EOMI, Sclerae nonicteric Neck: Supple, 2+ carotid pulse no bruit, No LAD, Without JVD or thyroid abnormality Respiratory: Clear to auscultation bilaterally, Normal air movement Cardiovascular: No edema, Regular rate/rhythm, Normal S1 S2 Capillary refill: <2 Seconds Gastrointestinal: Normal bowel sounds, Tenderness Musculoskeletal: No clubbing, No swelling, No tenderness Integumentary: No rashes Neurological: Normal gait, Normal speech, Normal strength at 5/5 x4 extr, Normal tone, Normal affect Lymphatics: No axilla or inguinal lymphadenopathy - Studies Laboratory Data (last 24 hrs) 09/23/22 07:48: Sodium 138, Potassium 4.1, BUN 17, Creatinine 1.13, Glucose 105, Total Bilirubin 0.6, AST 15, ALT 23, Alkaline Phosphatase 66, Lipase 181 09/23/22 07:48: WBC 5.40, Hgb 14.3, Hct 42.3, Plt Count 179 Assessment and Plan - Plan -- Acute diverticulitis. Imaging indicates Sigmoid diverticulitis with perforation without abscess. Surgeon consulted. Patient placed on antibiotics and IV hydration. We will further recommendation from surgeon. --CKD 2. Stable. Continue IV hydration. Reassess levels in a.m. --Nausea. Antiemetics on board. --Diarrhea. Resolved. No episode reported today. Continue supportive care. --Headache. Tylenol as needed. --Acute pain. We will manage pain with current pain medication regimen. --Elevated blood pressure. Will manage BP with hydralazine as needed. --DVT prophylaxis with SCDs. Discharge Plan: Home Plan to discharge in: Greater than 2 days - Advance Directives Does patient have a Living Will: No Does patient have a Durable POA for Healthcare: No - Code Status/Comfort Care Code Status Assessed: Yes Physician Review: Patient Assessed, Agree with Above Assessment and Plan Critical Care: No
[2022-09-23] MEDS: D5 0.9 NS 1,000 ML IV SCH (10:00)
[2022-09-23] MEDS ORDERED: D5 0.9 NS 1,000 ML IV ONE (10:02)
[2022-09-23 10:20] LABS: Protime INR 1.05
[2022-09-23 10:25] LABS: SARS-CoV-2 Antigen Rapid Res Negative (Negative)
[2022-09-23 10:31] LABS: Magnesium 2.4 mg/dL (1.8-2.4); Phosphorus 2.9 mg/dL (2.5-4.9)
[2022-09-23 16:30] VITALS: BMI 33.7
[2022-09-23] MEDS: PIPER TAZO 3.375 GM in NA CHLORIDE 0.9% 100 ML IV SCH (16:42)
[2022-09-23] MEDS: MORPHINE 4 MG/ML SYR IV PRN (18:01)
--- NOTE | 2022-09-23 20:35 | CON ---
Date of Consultation: 09/23/2022 Reason For Service: Diverticulitis with microperforation. History Of Present Illness: This is the case of a 51-year-old patient, who comes to us with abdomina l pain about 4 days ago, associated with nausea. Today, he was not getting better, so he decided to come to the ER. Found to have diverticulitis with a microperforation and a surgical consult was obta ined. He describes his pain as cramps. He denies any dysuria, hematuria, hematochezia, or melena, a nd denies any recent traveling out of the country. Denies any family member sick at home. Patient s jtes he had a colonoscopy about 20 years ago, although he does not remember exactly why, but he has not had one since then. Review of Systems: Ten points otherwise unremarkable. Allergies: NONE. Medications: None. Past Medical History: None. Past Surgical History: None. Social History: He does not smoke. He does not drink alcohol. Physical Examination: General: Patient is awake and alert. HEENT: Pupils are equal and reactive. Anicteric. Neck: Supple. Chest: Clear. Heart: S1, S2. Abdomen: Left lower quadrant tenderness with guarding. No rebound. Rectal: Deferred. Extremities: Good capillary refill. Laboratory Data: Blood work shows WBC count of 5, hemoglobin of 14.3, platelets of 179, potassium is 4.1, creatinine is 1.13. CAT scan of the abdomen and pelvis interpreted by Dr. Uriostegui as diverticuliti s with a microperforation. No abscess. Assessment: This is a 51-year-old patient with diverticulitis, I believe, that is the working diagno sis since he has no previous colonoscopy. We are going to keep him n.p.o., bowel rest, IV antibiotic s, IV fluid. He understands that if by any chance this developed into full-blown perforation then we might have to do emergent laparotomy, possible bowel resection, possible ostomy with benefits, alter natives, and risks including, but not limited to, infection, bleeding, damage to adjacent structures, anesthesia complication, [place], and even . He may have to have an ostomy that may or may not be r eversed. At the same time, if he does not have emergent surgery, then eventually in the next few wee ks, when this area of inflammation improves, we might have to do a colonoscopy. We also discussed wi th him options also of elective bowel resection once this inflammation goes down. CARY Voice ID: [id number] Report ID: [id number]
[2022-09-24] MEDS: D5 0.9 NS 1,000 ML IV SCH ×2 (00:03→09:05)
[2022-09-24] MEDS: PIPER TAZO 3.375 GM in NA CHLORIDE 0.9% 100 ML IV SCH ×3 (00:06→16:10)
[2022-09-24 03:51] LABS: Absolute Lymphocytes (CBC) 1.4 K/uL (0.7-4.9); Lymphocytes % 28.5 % (15.3-44.8); MCV 89.8 fL (80-100); MPV 7.5 fL (7.6-11.3); RBC Red Blood Cell Count 4.45 M/uL (4.33-5.43)
[2022-09-24 04:03] LABS: Potassium 4.3 mmol/L (3.5-5.1)
--- NOTE | 2022-09-24 06:10 | P.PN ---
Date of Service: 09/24/22 Subjective: Feels slight improvement, but continues with pain No new/worsening of symptoms ROS: 10 point ROS as noted above, otherwise negative Physical exam GEN: Alert, oriented, NAD HEENT: Normal conjunctiva, sclera anicteric, deaf CV: Regular rate and rhythm, no edema Pulm: Nonlabored respirations on room air ABD: Soft, mild-moderate LLQ tenderness Neuro: oriented, follows commands, moves extremities Problem List Acute sigmoid diverticulitis, with possible microperforation CKD 2 N.p.o., IV fluids Pain medication as needed No leukocytosis, afebrile Microperforation suspected on CT General surgery consulted Advance diet slowly Okay with ice chips/small amount of sips of water this evening VTE: SCDs Code: full Dispo: home, ~2-3 days Time Spent Managing Pts Care (In Minutes): 35
[2022-09-24] MEDS: PANTOPRAZOLE 40 MG INJ IVP SCH (08:55)
[2022-09-24] MEDS: MORPHINE 4 MG/ML SYR IV PRN (09:05)
[2022-09-25] MEDS: PIPER TAZO 3.375 GM in NA CHLORIDE 0.9% 100 ML IV SCH ×3 (00:26→15:51)
[2022-09-25] MEDS: D5 0.9 NS 1,000 ML IV SCH ×2 (02:00→15:51)
[2022-09-25 03:53] LABS: Hematocrit 40.8 % (39.6-49.0); MCV 89.6 fL (80-100); MPV 7.2 fL (7.6-11.3); RBC Red Blood Cell Count 4.56 M/uL (4.33-5.43)
[2022-09-25 04:01] LABS: Albumin 3.1 g/dL (3.4-5.0); Bilirubin Total 0.5 mg/dL (0.2-1.0); Magnesium 2.1 mg/dL (1.8-2.4); Potassium 4.1 mmol/L (3.5-5.1); Protein, Total 6.5 g/dL (6.4-8.2)
[2022-09-25] MEDS: PANTOPRAZOLE 40 MG INJ IVP SCH (07:59)
--- NOTE | 2022-09-25 16:59 | P.PN ---
Date of Service: 09/25/22 Subjective: improving not needing IV pain medicine less tender +flatus ROS: 10 point ROS as noted above, otherwise negative Physical exam GEN: Alert, oriented, NAD HEENT: Normal conjunctiva, sclera anicteric, deaf CV: Regular rate and rhythm, no edema Pulm: Nonlabored respirations on room air ABD: Soft, mild-moderate LLQ tenderness Neuro: oriented, follows commands, moves extremities Problem List Acute sigmoid diverticulitis, with possible microperforation CKD 2 advance to CLD Pain medication as needed No leukocytosis, afebrile Microperforation suspected on CT General surgery consulted Advance diet slowly Code: full Dispo: home, possibly tomorrow Time Spent Managing Pts Care (In Minutes): 35
[2022-09-26] MEDS: PIPER TAZO 3.375 GM in NA CHLORIDE 0.9% 100 ML IV SCH ×2 (00:33→08:36)
--- NOTE | 2022-09-26 02:02 | PN ---
Date of Progress Note: 09/25/2022 Reason For Service: Diverticulitis with microperforation. Subjective: Patient doing well. No complaint. Abdomen is benign. Laboratory Data: Blood work shows a WBC count of 5.9 with hemoglobin of 14, and platelets of 169. Plan: We going to advance diet slowly. Continue IV antibiotics. TOMASA/MODL Voice ID: [id number] Report ID: [id number]
[2022-09-26 03:59] LABS: Hematocrit 40.8 % (39.6-49.0); MPV 7.2 fL (7.6-11.3); RBC Red Blood Cell Count 4.63 M/uL (4.33-5.43)
[2022-09-26 04:13] LABS: Albumin 3.2 g/dL (3.4-5.0); Bilirubin Total 0.6 mg/dL (0.2-1.0); Potassium 3.9 mmol/L (3.5-5.1); Protein, Total 6.5 g/dL (6.4-8.2)
[2022-09-26 05:43] VITALS: TEMP 97.8
[2022-09-26] MEDS: PANTOPRAZOLE 40 MG INJ IVP SCH (08:36)
[2022-09-26] MEDS ORDERED: POTASSIUM CL SA 10 MEQ TAB PO ONE (09:00)
[2022-09-26 09:05] VITALS: O2SAT 96
[2022-09-26 10:10] VITALS: BP 132/59
--- NOTE | 2022-09-26 14:37 | P.DS ---
Admission Date: 09/23/22 Discharge Date: 09/26/22 Disposition: ROUTINE DISCHARGE Discharge Condition: GOOD Reason for Admission: Abd pain Consultations: General surgery Dr. Galindo Brief History of Present Illness: 51-year-old male with no known past medical history who presents with complaint of abdominal pain located in the lower quadrants that has been ongoing for the past 5 days. Patient rated pain as 7/10 in severity and described pain as pressure in quality. Patient indicated that pain radiates to his back. Patient reported associated signs and symptoms of chills, headache and diarrhea. Patient denies any other signs or symptoms. Symptoms are aggravated or relieved by nothing. Hospital Course: Problem List Acute sigmoid diverticulitis, with possible microperforation CKD 2 Patient presented with abdominal pain and found to have sigmoid diverticulitis with concern for possible microperforation on CT scan. General Surgery was consulted. Patient improved with bowel rest, IV fluids, IV antibiotics, and pain control. His diet was slowly advanced, he remained afebrile, and tolerated full liquid diet without any significant pain. He is stable for discharge home, to continue 12 more days of antibiotics. Avoid laxatives. Continue full liquid diet for several more days, then can slowly incorporate soft, low fiber foods. Follow up with Dr. Galindo in 1-2 weeks. Patient will need colonoscopy in the near future. Follow up with PCP within 1 week. Vital Signs/Physical Exam: Temp Pulse Resp BP Pulse Ox 97.8 F 65 18 132/59 L 94 09/26/22 08:00 09/26/22 08:00 09/26/22 08:00 09/26/22 08:00 09/26/22 08:00 Physical exam GEN: Alert, oriented, NAD HEENT: Normal conjunctiva, sclera anicteric, hard of hearing CV: Regular rate and rhythm, no edema Pulm: Nonlabored respirations on room air ABD: Soft, nontender, nondistended Laboratory Data at Discharge: WBC 5.70 K/uL (4.3-10.9) 09/26/22 03:28 Hgb 14.0 g/dL (13.6-17.9) 09/26/22 03:28 Hct 40.8 % (39.6-49.0) 09/26/22 03:28 Plt Count 176 K/uL (152-406) 09/26/22 03:28 PT 11.6 SECONDS (9.5-12.5) 09/23/22 09:58 INR 1.05 09/23/22 09:58 Sodium 139 mmol/L (136-145) 09/26/22 03:28 Potassium 3.9 mmol/L (3.5-5.1) 09/26/22 03:28 BUN 11 mg/dL (7-18) 09/26/22 03:28 Creatinine 1.11 mg/dL (0.55-1.3) 09/26/22 03:28 Glucose 89 mg/dL (74-106) 09/26/22 03:28 Phosphorus 2.9 mg/dL (2.5-4.9) 09/23/22 09:58 Magnesium 2.1 mg/dL (1.8-2.4) 09/25/22 03:24 Total Bilirubin 0.6 mg/dL (0.2-1.0) 09/26/22 03:28 AST 16 U/L (15-37) 09/26/22 03:28 ALT 27 U/L (12-78) 09/26/22 03:28 Alkaline Phosphatase 60 U/L (45-117) 09/26/22 03:28 Lipase 181 U/L (73-393) 09/23/22 07:48 Home Medications: levoFLOXacin [Levaquin] 750 mg PO DAILY 12 Days #12 tab 09/26/22 metroNIDAZOLE [Flagyl] 500 mg PO Q8H 12 Days #36 tab 09/26/22 New Medications: metroNIDAZOLE [Flagyl] 500 mg PO Q8H 12 Days #36 tab levoFLOXacin [Levaquin] 750 mg PO DAILY 12 Days #12 tab Physician Discharge Instructions: Patient presented with abdominal pain and found to have sigmoid diverticulitis with concern for possible microperforation on CT scan. General Surgery was consulted. Patient improved with bowel rest, IV fluids, IV antibiotics, and pain control. His diet was slowly advanced, he remained afebrile, and tolerated full liquid diet without any significant pain. He is stable for discharge home, to continue 12 more days of antibiotics. Avoid laxatives. Continue full liquid diet for several more days, then can slowly incorporate soft, low fiber foods. Follow up with Dr. Galindo in 1-2 weeks. Patient will need colonoscopy in the near future. Follow up with PCP within 1 week. Followup: Jese Galindo MD [ACTIVE - CAN ADMIT] - 1-2 Weeks (Call to make appointment ) Unknown,U [Primary Care Provider] - 1 Week (Call to make appointment ) Time spent managing pt's care (in minutes): 45
== END 2022-09-26 10:51 | disposition home or self-care (01) | DRG 392 ==
LOC: ER 06:42 → ERHOLD 09:33 → 2ND 15:37
PROVIDERS: ADMIT Hospitalist; ATTEND Hospitalist
DX: K57.20 Diverticulitis of large intestine with perforation and abscess without bleeding (principal); N18.2 Chronic kidney disease, stage 2 (mild); R11.0 Nausea; R19.7 Diarrhea, unspecified; R51.9 Headache, unspecified; R03.0 Elevated blood-pressure reading, without diagnosis of hypertension; Z28.310 Unvaccinated for COVID-19; Z79.899 Other long term (current) drug therapy; Z20.822 Contact with and (suspected) exposure to COVID-19
CPT/HCPCS: 36415; 74177; 80048; 80053; 81003; 81015; 82550; 83690; 83735; 83880; 84100; 85025; 85027; 85610; 87811; 96365; 96375; 99285; C9113; J2543; J7042; Q9967

== ENCOUNTER 2022-11-09 06:51 | Day surgery (SDC) | payer BC ==
[2022-11-09] MEDS ORDERED: Ringers Lactate 1,000 ML IV ONE (07:11)
[2022-11-09] MEDS ORDERED: LIDOCAINE 2% MPF 5 ML VIAL ONE (08:11)
[2022-11-09] MEDS ORDERED: propofoL 200 MG/20 ML VIAL IV ONE (08:11)
--- NOTE | 2022-11-09 08:55 | ENDO RPT ---
[address], [id number] COLONOSCOPY PROCEDURE REPORT EXAM DATE: 11/09/2022 PATIENT NAME: Pola Ceron MR #: [id number] BIRTHDATE: 1970 ATTENDING: Jese Galindo MD STATUS: outpatient [employer] ASSISTANT: Ce Parker RN and Juan Grover CST INDICATIONS: The patient is a 52 yr old Male here for a colonoscopy due to diverticulitis PROCEDURE PERFORMED: Colonoscopy MEDICATIONS: Per Anesthesia. ESTIMATED BLOOD LOSS: None CONSENT: The patient understands the risks and benefits of the procedure and understands that these risks include, but are not limited to: sedation, allergic reaction, infection, perforation and/or bleeding. Alternative means of evaluation and treatment include, among others: physical exam, x-rays, and/or surgical intervention. The patient elects to proceed with this endoscopic procedure. DESCRIPTION OF PROCEDURE: During intra-op preparation period all mechanical medical equipment was checked for proper function. Hand hygiene and appropriate measures for infection prevention was taken. Procedure, possible complications, alternatives including, but not limited to possibility of bleeding, perforation, tear, infection, sepsis, need for surgery, need for blood transfusion, were explained to the patient. After the risks, benefits and alternatives of the procedure were thoroughly explained, Informed consent was verified, confirmed and timeout was successfully executed by the treatment team. The patient was placed in the left lateral position. A digital rectal exam was performed and revealed external hemorrhoids. After appropriate level of anesthesia, the scope was passed. The [id number] ([id number]) endoscope was introduced through the anus and advanced to the cecum, which was identified by transillumination from the light source, the appendix, and the ileocecal valve. The quality of the prep was good. The instrument was then slowly withdrawn as the colon was fully examined. Scope withdrawal time was . COLON FINDINGS: Moderate sized internal and external hemorrhoids were found. Diverticula was found in the descending colon and sigmoid colon. The opening was medium sized. Retroflexed views revealed no abnormalities. The scope was then completely withdrawn from the patient and the procedure terminated. ADVERSE EVENTS: There were no complications. IMPRESSIONS: 1. Moderate sized internal and external hemorrhoids 2. Diverticula in the descending colon and sigmoid colon RECOMMENDATIONS: 1. no seeds in diet 2. hemorrhoidal hygiene 3. follow-up: office 1-2 week(s) RECALL: Return in 5-10 year(s) for Colonoscopy. Jese Galindo MD eSigned: Jese Galindo MD 11/09/2022 8:54 AM cc: dK Upton M.D. CPT CODES: ICD9 CODES: PATIENT NAME: Pola Ceron MR#: [id number]
[2022-11-09 10:17] VITALS: TEMP 98.4
[2022-11-09 10:18] VITALS: O2SAT 100
[2022-11-09 10:20] VITALS: BP 117/60
== END 2022-11-09 10:10 | disposition home or self-care (01) ==
LOC: OR 06:51
PROVIDERS: ATTEND Surgery
PROC: 0DJD8ZZ Inspection of Lower Intestinal Tract, Via Natural or Artificial Opening Endoscopic (ICD-10-PCS; principal; 2022-11-09 08:30)
DX: Z12.11 Encounter for screening for malignant neoplasm of colon (principal); K64.8 Other hemorrhoids; K64.4 Residual hemorrhoidal skin tags; K57.30 Diverticulosis of large intestine without perforation or abscess without bleeding
CPT/HCPCS: 45378; J2704; J2001; J7120